=== PATIENT | female | born 1960 | race Two or more races ===

== ENCOUNTER 2020-08-17 17:22 | Outpatient (REF) | payer OTHER, SELFPAY | END 2020-08-17 17:23 | disposition home or self-care (01) | LOC: HO.LAB 17:22 | PROVIDERS: Visit Provider Internal Medicine | DX: Z20.822 Contact with and (suspected) exposure to COVID-19 (principal) | CPT/HCPCS: 36415; C9803; U0003; U0005 ==

== ENCOUNTER 2020-08-24 15:24 | Outpatient (REF) | payer OTHER, SELFPAY | END 2020-08-24 15:25 | disposition home or self-care (01) | LOC: HO.LAB 15:24 | PROVIDERS: Visit Provider Internal Medicine | DX: Z20.822 Contact with and (suspected) exposure to COVID-19 (principal) | CPT/HCPCS: 36415; C9803; U0003; U0005 ==

== ENCOUNTER 2021-07-19 07:59 | Emergency (ER) | payer OTHER, SELFPAY ==
[2021-07-19 08:42] VITALS: BP 122/72; PULSE 74; RESP 18; TEMP 36.7; O2SAT 99; BMI 32.8
--- NOTE | 2021-07-19 09:07 | ED.URI ---
HPI - URI/Sore Throat General Chief Complaint: Upper Respiratory Symptoms Stated Complaint: headache,body aches Time Seen by Provider: 07/19/21 09:07 Source: patient Mode of arrival: ambulatory Limitations: no limitations History of Present Illness HPI Narrative: This is a 60 year old female presents to the emergency department with headache, sore throat, body aches, nasal congestion, malaise X5 days. 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 She tells me she a headache, located to the frontal aspect of the head, she describes it as a tightness, she also tells me she is having neck tightness. She tells me she is very stressed because she is living at home with her father, and she is afraid that he is going to catch COVID.She is fully vaccinated against COVID. She tells me she had COVID earlier last year and it felt similar. Denies CP, SOB. MD elicited complaint: sore throat, nasal congestion and other (Bodyaches, Headache ) Onset (ago): day(s) (5) Consistency: constant Severity: moderate Able to tolerate fluids by mouth: Yes Exacerbating factors: nothing Relieving factors: nothing Context: sick contacts Related Data Allergies Allergy/AdvReac Type Severity Reaction Status Date / Time No Known Allergies Allergy Verified 07/19/21 08:41 [No Known Allergies*] Review of Systems Review of Systems: Constitutional : No Fever, No Chills, positive fatigue, positive Malaise ENT/Mouth : positive sore throat, No runny nose Eyes: No Discharge Cardiovascular : No Chest Pain, No SOB Respiratory : No Cough, No Sputum Gastrointestinal : No Nausea, No Vomiting, No Diarrhea Genitourinary : No Dysuria, No Urinary Frequency Musculoskeletal : positive Myalgia Skin : No rash Neuro : positive Headache Yes all other systems are reviewed and are negative [facility] Past Medical History Attestation statement: The following information was validated with the patient. Source: old records reviewed and nursing notes reviewed Social History Social History Advance Directives: No Physical Exam Vital Signs: Vital Signs: Last Vital Signs Temp 98.1 F 07/19/21 08:42 Pulse 74 07/19/21 08:42 Resp 18 07/19/21 08:42 BP 122/72 07/19/21 08:42 Pulse Ox 99 07/19/21 08:42 BMI result Body Mass Index 32.8 VSS Appearance: Alert.? Oriented X3.? No acute distress.? Head: Normocephalic, atraumatic, no step-offs or deformities Eyes: Pupils equal, round and reactive to light.? ENT: Pharynx normal.? Neck: Normal inspection.? Neck supple.? CVS: Normal heart rate and rhythm.? Pulses normal.? Respiratory: No respiratory distress.? Breath sounds normal.? Abdomen: Soft and nontender.? Skin: Skin warm and dry.? Normal skin color.? Normal skin turgor.? Extremities: No lower extremity edema.? No calf ttp. 5/5 strength to bilateral upper and lower extremities Neuro: Oriented X 3.? No motor deficit.? No sensory deficit. Course Reevaluation(s) Reevaluation #1: Rapid COVID negative. Patient's history and physical examination consistent with COVID-19, I have advised her to retest in 2-4 days. Have also advised her to quarantine, and practice social distancing and good hand hygiene. I have also advised her to return to the emergency department with new or worsening symptoms, and have outlined strict return precautions on her discharge. At this time patient's vital signs are stable, she is not complaining of chest pain or shortness of breath. Unlikely ACS or PE, unlikely ICH. She was given Toradol for headache. Comfortable discharge home Time: 09:39 MDM - URI/Sore Throat MDM Narrative Medical decision making narrative: 0935 60 yo F presents with COVID like symptoms X5 days. Works as a [employer] has had multiple covid + patients this past week. Her headache feels like her typical headache, she describes as tightness and squeezing to the front of her head, and she also describes tightness her neck. She reports being under lot of stress. Physical examination benign. Normal neuro exam, normal [id number], [id number], normal tandem gait. Likely an upper respiratory viral infection. Or COVID-19. Unlikely ICH, posterior stroke. Plan at this time is to obtain a COVID test Medical Records Attestation: I reviewed the patient's medical records. Lab Data Attestation: I reviewed the patient's lab results. Labs: Lab Results 07/19/21 Range/Units 08:49 COVID-19 (TYLOR) Negative (Negative) COVID-19 Clin Com See Note Critical Care Time Critical Care Time Critical Care Time: No Discharge Plan Discharge Clinical Impression: Upper respiratory infection Patient Disposition: Home, Self-Care Instructions: Upper Respiratory Infection (ED) Additional Instructions: Take your medications as prescribed. Today tested negative for COVID-19 however, advised you to retest in 2-4 days due to your close contact with COVID positive patients, and your history and physical examination. Please isolate for a few days until you retest. Wear a mask, practice social distancing and practice good hand hygiene. Follow-up with your primary care provider this week. Return to the emergency department with new or worsening symptoms. Such as chest pain, shortness of breath, fevers, chills, nausea, vomiting, headache, dizziness, vision changes, weakness. In case of emergency call 911 Referrals: Physician,Kevin J [Primary Care Provider] - 2 days Stand Alone Forms: Work/School Release
[2021-07-19 09:17] LABS: COVID-19 Test Negative (Negative); IDNOW Serial# 08D9AD1C
== END 2021-07-19 10:33 | disposition home or self-care (01) ==
PROVIDERS: Emergency Provider Emergency Medicine
DX: J06.9 Acute upper respiratory infection, unspecified (principal); Z20.822 Contact with and (suspected) exposure to COVID-19; R51.9 Headache, unspecified
CPT/HCPCS: 87635; 96372; 99282; 99284

== ENCOUNTER → 2021-10-21 14:06 | Outpatient (BNVA) | payer OTHER, SELFPAY | PROVIDERS: Visit Provider Nurse Practitioner Family | DX: M53.3 Sacrococcygeal disorders, not elsewhere classified (principal); M62.838 Other muscle spasm | CPT/HCPCS: 99202 ==

== ENCOUNTER 2022-08-01 08:53 | Emergency (ER) | payer OTHER, SELFPAY ==
--- NOTE | ~2022-08-01 | CT_ITS ---
EXAMINATION: CT ABDOMEN AND PELVIS WITHOUT CONTRAST CLINICAL INFORMATION: Left flank/abdominal pain, microscopic hematuria. COMPARISON: CT abdomen/pelvis 12/04/2016. TECHNIQUE: Multidetector volumetric imaging was performed from the superior aspect of the liver through the pubic symphysis. Sagittal and coronal reformatted images were obtained on the technologist's workstation. This CT examination was performed using dose optimization techniques as appropriate, variously including the following: *Automated exposure control *Adjustment of mA and/or kV according to patient size (this includes techniques or standardized protocols for targeted exams where dose is matched to indication/reason for exam; i.e. extremities or head) *Use of iterative reconstruction technique DLP: 643 mGy-cm FINDINGS: LUNG BASES: No focal consolidation or pleural effusion. Partially imaged coronary artery calcifications. LIVER, GALLBLADDER, AND BILIARY TREE: The noncontrast liver is normal in size, shape and attenuation with no discrete focal liver lesion. Cholecystectomy. No biliary ductal dilatation. PANCREAS: Limited noncontrast examination, unremarkable. SPLEEN: Limited noncontrast examination, unremarkable. ADRENAL GLANDS: No adrenal mass/nodule. KIDNEYS AND URETERS: There is a 5 mm stone in the left ureterovesical junction leading to moderate left-sided hydroureteronephrosis. There is an additional punctate calculus in the lateral surface of the mid left kidney (5:54) and in the upper pole of the left kidney (6:43). No right-sided nephrolithiasis. BLADDER: Partially underdistended limiting its assessment. No significant perivesical fat stranding. No radiopaque intraluminal calculi. GASTROINTESTINAL TRACT: Postoperative changes in the stomach reflecting a gastric sleeve procedure. There is nonspecific distention of the distal stomach. The small bowel is nondilated. Prior appendectomy. Colonic diverticulosis. No pericolonic inflammatory changes. No evidence of bowel obstruction. ABDOMINAL WALL: No significant hernia is appreciated. LYMPH NODES: Multiple enlarged mesenteric nodules, possibly lymphadenopathy, for instance a 1.3 x 2.1 cm lower mesenteric nodule on image 60, series 3. VASCULAR: Limited noncontrast examination. Normal diameter of the abdominal aorta. Scattered atherosclerotic disease. PELVIC VISCERA: No pelvic mass. OSSEOUS STRUCTURES: No acute or aggressive appearing osseous abnormalities. Degenerative changes of the spine. CT/CT abdomen pelvis wo IV con IMPRESSION: 1. There is a 5 mm stone in the left ureterovesical junction leading to moderate left-sided hydroureteronephrosis. 2. Additional punctate left-sided renal calculi. 3. Multiple enlarged mesenteric nodules, possibly lymphadenopathy, new compared to 2017. Uncertain etiology, recommend a short-term follow-up to reassess. 4. Nonspecific distention of the distal stomach in the setting of a gastric sleeve procedure. Correlate clinically for symptoms of gastric outlet obstruction or gastroparesis. 5. Colonic diverticulosis but no evidence of acute diverticulitis.
[2022-08-01 09:39] VITALS: BP 130/87; PULSE 74; RESP 16; TEMP 36.2; O2SAT 98; BMI 33.8
[2022-08-01 10:06] LABS: MANUAL DIFF FLAG NO
[2022-08-01 10:07] LABS: Basophils Percent Auto 0.6 % (0-2); Eosinophils Absolute Auto 0.1 X10*3/uL (0.0-0.4); Eosinophils Percent Auto 0.9 % (0-4); Hematocrit 38.7 % (37.0-47.0); Hemoglobin 13.3 g/dl (12.0-16.0); Imm Gran Abs Auto 0.02 X10*3/uL (0.00-0.03); Imm Gran Pct Auto 0.4 % (0.0-0.4); Lymphocytes Absolute Auto 1.1 X10*3/uL (1.2-4.9); Lymphocytes Percent Auto 19.7 % (20-40); Mean Corpuscular HGB Conc 34.4 g/dl (31.0-35.0); Mean Corpuscular Hemoglobin 29.1 pg (27.0-33.0); Mean Corpuscular Volume 84.7 fL (80.0-98.0); Mean Platelet Volume 8.8 fL (9.4-12.3); Monocytes Absolute Auto 0.2 X10*3/uL (0.1-1.2); Monocytes Percent Auto 4.4 % (2-11); Platelet Count 257 X10*3/uL (160-400); Red Blood Count 4.57 X10*6/uL (4.20-5.50); Red Cell Distribution Width 12.3 % (11.0-16.0); White Blood Count 5.4 X10*3/uL (4.8-10.8)
[2022-08-01 10:08] LABS: Appearance Urine Clear; Color Urine Yellow; Glucose Urine UA Negative (Negative); Leukocyte Esterase Urine Negative (Negative); Nitrite Urine Negative (Negative); PH 5.5 (5.0-9.0); UMIC TRIGGER UACC YES; Urine Blood Large (3+) (Negative); Urine Ketones Negative (Negative); Urine Protein Negative (Neg-Trace)
[2022-08-01 10:25] LABS: Bacteria Urine None Seen (None Seen); Hyaline Casts Urine 0-2 /LPF (0-2); RBC Urine >20 /HPF (0-2); Squamous Epithelial Cell Urine 0-2 /HPF (0-2); WBC Urine 0-5 /HPF (0-5)
[2022-08-01 10:27] LABS: COVID-19 Test Negative (Negative); IDNOW Serial# 9DB6401D; IDNOW Serial# BCCEAD1C; Influenza A Negative (Negative); Influenza B2 Negative (Negative)
[2022-08-01 10:30] LABS: Anion Gap 10 (12-20); Blood Urea Nitrogen 6 mg/dL (9-16); Carbon Dioxide 31 mmol/L (22-29); Chloride 107 mmol/L (96-108); Creatinine Clr Calc Pharmacy 82.6; Estimated Glomerular Filt Rate > 60; Glucose Random 111 mg/dL (60-115); Potassium 4.4 mmol/L (3.3-5.1); Sodium 144 mmol/L (135-145)
[2022-08-01 16:11] VITALS: BP 149/78; PULSE 71; RESP 16; TEMP 37.4; O2SAT 95
--- NOTE | 2022-08-01 16:30 | ED_ITS ---
HPI - Female Genitourinary General Chief complaint: Urogenital-Female Stated complaint: L back pain rad to front Time Seen by Provider: 08/01/22 16:14 Source: patient Mode of arrival: ambulatory Limitations: no limitations History of Present Illness HPI Narrative: Patient a 61 male presents to the emergency department evaluation of left flank/abdominal pain with associated nausea vomiting and fever. She states that she awoke at 02:00 this morning with sudden onset of left flank pain radiating into the left lower abdomen. Pain has been constant with varying intensity. At times it appears worse with position change/movement. Reports T-max 103 degrees today for which she took ibuprofen and fever improved. States she has vomited 5 times today, large volume of white/clear emesis. Although she does state it is not abnormal for her to have vomiting since her gastric surgery. Denies chest pain, shortness of breath, right-sided abdominal pain, dysuria, urinary frequency/urgency/hesitancy, hematuria, retention, diarrhea, constipation, bloody or dark stools, mucousy stools. Denies any history of similar pain to this in the past. When asked, she states that she is currently prescribed hydrochlorothiazide because I do not urinary Iliana? but denies any history of heart failure, or hypertension. Related Data Home Medications Medication Instructions Recorded Confirmed cholecalciferol (vitamin D3) 25 25 mcg PO DAILY 10/21/21 10/21/21 mcg (1,000 unit) tablet ferrous sulfate 325 mg (65 mg 325 mg PO DAILY 10/21/21 10/21/21 iron) tablet fluticasone propionate 50 2 spray intranasal DAILY 10/21/21 10/21/21 mcg/actuation nasal spray,suspension hydrochlorothiazide 25 mg tablet 25 mg PO DAILY 10/21/21 10/21/21 multivitamin (One Daily 1 tab PO DAILY 10/21/21 10/21/21 Multivitamin tablet) omeprazole 20 mg capsule,delayed 20 mg PO DAILY 10/21/21 10/21/21 release vitamin [id number] B1 1,000 1 ml IM . monthly 10/21/21 10/21/21 mcg-100 mg/mL injection solution Previous Rx's Medication Instructions Recorded naproxen 500 mg tablet 500 mg PO BID PRN pain #14 tabs 08/01/22 ondansetron 4 mg disintegrating 4 mg PO Q8H PRN nausea and 08/01/22 tablet vomiting #10 tabs tamsulosin 0.4 mg capsule 0.4 mg PO BEDTIME #10 caps 08/01/22 Allergies Allergy/AdvReac Type Severity Reaction Status Date / Time No Known Allergies Allergy Verified 10/21/21 14:17 [No Known Allergies*] Review of Systems Review of Systems: Constitutional : No Weight loss, positive Fever, No Chills ENT/Mouth :? No sore throat, No Rhinorrhea Eyes: No Swelling, No Redness Cardiovascular : No Chest Pain, No SOB, No Edema Respiratory : No Cough, No Sputum, No Wheezing Gastrointestinal : Positive Nausea, Positive Vomiting, no Diarrhea, positive abd ominal pain, No Hematochezia, No Melena Genitourinary : No Dysuria, No Urinary Frequency, No Hematuria, No Urgency? Musculoskeletal : No joint pain, No Myalgias, No Joint Swelling Skin : No Skin Lesions, No rash Neuro : No Weakness, No Numbness, No Dizziness, No Headache Psych : No Anxiety/Panic, No Depression Heme/Lymph: No Bruising, No Lymphadenopathy Endocrine : No Polyuria, No Polydipsia Yes all other systems are reviewed and are negative [facility] Past Medical History Attestation statement: The following information was validated with the patient. Source: old records reviewed Medical History Anemia Hypertension Surgical History H/O gastric sleeve History of appendectomy History of cholecystectomy History of hernia surgery Social History Social History Alcohol intake: never Smoked in Last 30 Days: No Use of substances other than those prescribed or required for medical reasons: No Advance Directives: No Advance Directives Information Provided: Yes Physical Exam Vital Signs: Vital Signs: Last Vital Signs Temp 98.4 F 08/01/22 20:02 Pulse 61 08/01/22 20:02 Resp 18 08/01/22 20:02 BP 135/70 08/01/22 20:02 Pulse Ox 97 08/01/22 20:02 O2 Del Method 08/01/22 20:02 BMI result Body Mass Index 33.8 Appearance: Alert.?Oriented to person, place and time. No acute distress.?Normal affect. Eyes: Pupils equal, round and reactive to light.? ENT: Pharynx normal.?? Neck: Normal inspection.? Neck supple.?? CVS: Heart sounds normal. Normal heart rate and rhythm.? Pulses normal.?? Respiratory: No respiratory distress.? Lung sounds clear to auscultation bilaterally?? Abdomen: Soft with left lower quadrant tenderness upon palpation. Left CVA tenderness.. Normoactive bowel sounds. Skin: Skin warm and dry.? Normal skin color.? Extremities: No lower extremity edema.? Neuro: Moves all extremities spontaneously. Sensation intact bilaterally. No focal neuro deficits. Ambulates with normal steady gait. Course Reevaluation(s) Reevaluation #1: CBC reveals no evidence of leukocytosis, no anemia CMP is overall unremarkable, lipase within normal limits. Urinalysis with microscopic hematuria, no evidence of urinary tract infection. COVID-19 and influenza testing are negative. CT of the abdomen and pelvis reveals a 5 mm stone at the left UVJ resulting in moderate hydronephrosis, and a additional punctate left-sided calculi. Discussed these findings with patient, provided with new prescription for naproxen, ondansetron, and tamsulosin, advised outpatient follow-up with the Urology, provided contact information. On CT there was incidental notation of enlarged mesenteric nodules, possibly lymphadenopathy which is new when compared to study in 2017. Reviewed these findings with patient. Advised outpatient follow-up with her primary care provider/bariatric specialist for further follow-up and evaluation. We discussed worrisome signs and symptoms that would warrant re-evaluation in the emergency department. All questions were answered. Patient feels comfortable with discharge home at this time. She is tolerating oral intake. Time: 20:24 Medications Administered Discontinued Medications Generic Name Dose Route Start Last Admin Trade Name Freq PRN Reason Stop Dose Admin Sodium Chloride 1,000 mls @ 999 mls/hr 08/01/22 17:15 08/01/22 18:21 Ns IV 08/01/22 18:15 999 mls/hr .Q1H1M KELVIN Administration Ketorolac Tromethamine 30 mg 08/01/22 17:07 08/01/22 18:24 Ketorolac Tromethamine 30 Mg/Ml Vial IVPUSH 08/01/22 17:08 30 mg ONCE ONE Administration Ondansetron HCl 4 mg 08/01/22 17:07 08/01/22 18:24 Ondansetron Hcl 4 Mg/2 Ml Vial IVPUSH 08/01/22 17:08 4 mg ONCE ONE Administration Medical Decision Making Medical Decision Making [facility] Narrative: Patient is a 61-year-old female with past medical history of anemia, hypertension, cholecystectomy, appendectomy, gastric sleeve who presents emergency department for evaluation of left flank/lower abdominal pain and associated nausea/vomiting and fever. At the time of examination she appears uncomfortable. Having difficulty sitting still while stretcher. Examination most significant for left lower quadrant abdominal/left CVA tenderness upon palpation. Currently she is afebrile without tachypnea, tachycardia, or hypoxia. She is in no apparent respiratory distress. Will obtain CBC to eval uate for leukocytosis/ anemia, CMP and lipase to evaluate for abnormal electrolytes /abnormal renal function/ abnormal hepatic/biliary function, CT of the abdomen and pelvis to evaluate for hydronephrosis, nephrolithiasis, obstructive urinary calculi, pyelonephritis at this time have lower suspicion for diverticulitis, colitis, bowel obstruction. Will obtain Urinalysis. Patient to receive 1 L normal saline IV, ondansetron IV for nausea, ketorolac IV for pain. Disposition pending results. Differential Diagnosis Differential Diagnoses: The differential diagnosis associated with the presentation includes (As noted above) Lab Data [facility] Lab Attestation statement: I reviewed the patient's lab results. 08/01/22 09:59 08/01/22 09:59 Labs: Lab Results 08/01/22 08/01/22 08/01/22 Range/Units 09:59 09:59 09:59 WBC (4.8-10.8) X10*3/uL RBC (4.20-5.50) X10*6/uL Hgb (12.0-16.0) g/dl Hct (37.0-47.0) % MCV (80.0-98.0) fL MCH (27.0-33.0) pg MCHC (31.0-35.0) g/dl RDW (11.0-16.0) % Plt Count (160-400) X10*3/uL MPV (9.4-12.3) fL Immature Gran % (Auto) (0.0-0.4) % Neut % (Auto) (45-73) % Lymph % (Auto) (20-40) % [place] % (Auto) (2-11) % Eos % (Auto) (0-4) % Baso % (Auto) (0-2) % Lymph # (Auto) (1.2-4.9) X10*3/uL [place] # (Auto) (0.1-1.2) X10*3/uL Eos # (Auto) (0.0-0.4) X10*3/uL Baso # (Auto) (0.0-0.2) X10*3/uL Abs Immat Gran (auto) (0.00-0.03) X10*3/uL Absolute Neuts (auto) (2.0-8.3) x10*3/uL Absolute Nucleated RBC (0.0-0.012) X10*3/uL Nucleated RBC % (auto) (0.0-0.2) /100WBC Sodium 144 (135-145) mmol/L Potassium 4.4 (3.3-5.1) mmol/L Chloride 107 (96-108) mmol/L Carbon Dioxide 31 H (22-29) mmol/L Anion Gap 10 L (12-20) BUN 6 L (9-16) mg/dL Creatinine 0.69 (0.5-1.4) mg/dL Estim Creat Clear Calc 82.6 Estimated GFR > 60 Random Glucose 111 (60-115) mg/dL Calcium 9.0 (8.4-10.2) mg/dL Total Bilirubin 0.6 (0.0-1.0) mg/dL Direct Bilirubin 0.2 (0.0-0.5) mg/dL AST 29 (5-31) U/L ALT 25 (0-31) U/L Alkaline Phosphatase 64 (39-117) U/L Total Protein 6.4 L (6.5-8.0) g/dL Albumin 3.9 (3.5-5.0) g/dL Lipase 20 (8-78) U/L Urine Color Urine Appearance Urine pH (5.0-9.0) Ur Specific [place] (1.005-1.025) Urine Protein (Neg-Trace) mg/dL Urine Glucose (UA) (Negative) mg/dL Urine Ketones (Negative) mg/dL Urine Blood (Negative) Urine Nitrite (Negative) Ur Leukocyte Esterase (Negative) Urine RBC (0-2) /HPF Urine WBC (0-5) /HPF Ur Squamous Epith Cells (0-2) /HPF Urine Bacteria (None Seen) Hyaline Casts (0-2) /LPF COVID-19 ([facility]) Negative (Negative) COVID-19 Clin Com See Note Influenza Type A (PIPER) Negative (Negative) Influenza Type B (PIPER) Negative (Negative) Influenza A & B Note See Note 08/01/22 08/01/22 Range/Units 09:59 09:59 WBC 5.4 (4.8-10.8) X10*3/uL RBC 4.57 (4.20-5.50) X10*6/uL Hgb 13.3 (12.0-16.0) g/dl Hct 38.7 (37.0-47.0) % MCV 84.7 (80.0-98.0) fL MCH 29.1 (27.0-33.0) pg MCHC 34.4 (31.0-35.0) g/dl RDW 12.3 (11.0-16.0) % Plt Count 257 (160-400) X10*3/uL MPV 8.8 L (9.4-12.3) fL Immature Gran % (Auto) 0.4 (0.0-0.4) % Neut % (Auto) 74.0 H (45-73) % Lymph % (Auto) 19.7 L (20-40) % [place] % (Auto) 4.4 (2-11) % Eos % (Auto) 0.9 (0-4) % Baso % (Auto) 0.6 (0-2) % Lymph # (Auto) 1.1 L (1.2-4.9) X10*3/uL [place] # (Auto) 0.2 (0.1-1.2) X10*3/uL Eos # (Auto) 0.1 (0.0-0.4) X10*3/uL Baso # (Auto) 0.0 (0.0-0.2) X10*3/uL Abs Immat Gran (auto) 0.02 (0.00-0.03) X10*3/uL Absolute Neuts (auto) 4.0 (2.0-8.3) x10*3/uL Absolute Nucleated RBC 0.000 (0.0-0.012) X10*3/uL Nucleated RBC % (auto) 0.0 (0.0-0.2) /100WBC Sodium (135-145) mmol/L Potassium (3.3-5.1) mmol/L Chloride (96-108) mmol/L Carbon Dioxide (22-29) mmol/L Anion Gap (12-20) BUN (9-16) mg/dL Creatinine (0.5-1.4) mg/dL Estim Creat Clear Calc Estimated GFR Random Glucose (60-115) mg/dL Calcium (8.4-10.2) mg/dL Total Bilirubin (0.0-1.0) mg/dL Direct Bilirubin (0.0-0.5) mg/dL AST (5-31) U/L ALT (0-31) U/L Alkaline Phosphatase (39-117) U/L Total Protein (6.5-8.0) g/dL Albumin (3.5-5.0) g/dL Lipase (8-78) U/L Urine Color Yellow Urine Appearance Clear Urine pH 5.5 (5.0-9.0) Ur Specific [place] 1.010 (1.005-1.025) Urine Protein Negative (Neg-Trace) mg/dL Urine Glucose (UA) Negative (Negative) mg/dL Urine Ketones Negative (Negative) mg/dL Urine Blood Large (3+) H (Negative) Urine Nitrite Negative (Negative) Ur Leukocyte Esterase Negative (Negative) Urine RBC >20 H (0-2) /HPF Urine WBC 0-5 (0-5) /HPF Ur Squamous Epith Cells 0-2 (0-2) /HPF Urine Bacteria None Seen (None Seen) Hyaline Casts 0-2 (0-2) /LPF COVID-19 ([facility]LOR) (Negative) COVID-19 Clin Com Influenza Type A (PIPER) (Negative) Influenza Type B (PIPER) (Negative) Influenza A & B Note Radiology Impression Discussion of test interpretation with radiology: I have reviewed the radiologist's reading. Radiologist Impression: CT/CT abdomen pelvis wo IV con IMPRESSION: 1.? There is a 5 mm stone in the left ureterovesical junction leading to moderate left-sided hydroureteronephrosis. 2.? Additional punctate left-sided renal calculi. 3.? Multiple enlarged mesenteric nodules, possibly lymphadenopathy, new compared to 2017. Uncertain etiology, recommend a short-term follow-up to reassess. 4.? Nonspecific distention of the distal stomach in the setting of a gastric sleeve procedure. Correlate clinically for symptoms of gastric outlet obstruction or gastroparesis. 5.? Colonic diverticulosis but no evidence of acute diverticulitis. Prescription Management I considered prescription management with: Pain Medication Discharge Plan Discharge Clinical Impression: Hydronephrosis concurrent with and due to calculi of kidney and ureter, Mesenteric lymphadenopathy Patient Disposition: Home, Self-Care Instructions: Lymphadenopathy (ED), Ureteral Stones (ED) Additional Instructions: The CT scan reveals evidence of a kidney stone on your left side, it is at the area where your ureter (the small tube from your kidney that leads to your blad carrie), meets with your bladder, meaning this is very close to being fully past. You have been given a prescription for anti-inflammatory, in addition to tamsulosin to take to assist with passing the stone. In addition you have been given a medication to help with nausea/vomiting. You have been provided contact information for the urologist associated with this hospital, please contact their office tomorrow to arrange for a follow-up visit. You may return back to the emergency department with any new or worsening symptoms or concerns. As we discussed, the CT scan of your abdomen also incidentally revealed enlarged lymph nodes within your abdomen, this is very nonspecific, and may be in rela tion to viral infections, but would not be caused by your kidney stones. For this you should contact your primary care provider, to arrange for a follow-up visit and further evaluation as needed. Prescriptions: New tamsulosin 0.4 mg capsule 0.4 mg PO BEDTIME Qty: 10 0RF naproxen 500 mg tablet 500 mg PO BID PRN (Reason: pain) Qty: 14 0RF ondansetron 4 mg tablet,disintegrating 4 mg PO Q8H PRN (Reason: nausea and vomiting) Qty: 10 0RF No Action cholecalciferol (vitamin D3) 25 mcg (1,000 unit) tablet 25 mcg PO DAILY omeprazole 20 mg capsule,delayed release(DR/EC) 20 mg PO DAILY hydrochlorothiazide 25 mg tablet 25 mg PO DAILY multivitamin [One Daily Multivitamin] Tablet 1 tab PO DAILY ferrous sulfate 325 mg (65 mg iron) tablet 325 mg PO DAILY vitamin [id number] B1 1,000-100 mg/mL solution 1 ml IM . monthly fluticasone propionate 50 mcg/actuation spray,suspension 2 spray intranasal DAILY Referrals: Greg Pacheco MD [Physician] - Juancarlos Means III, MD [Primary Care Provider] - Interventions: ED Discharge Assessment Last Done: 08/01/22 20:59 Discharge Date/Time: 08/01/22 20:59
--- OUTSIDE RECORDS SUMMARY | 2022-08-01 16:40 | XMS_ITS | Continuity of Care Document ---
:1960 Author Organization [facility] Address [address] [place] [id number]- Care Team Providers Name Role Phone Not on Staff, PCP Primary Care Physician Unavailable Encounter [facility] Date(s): 01/11/21 - 01/11/[address] [id number] Discharge Disposition: A-D/C Home Attending Physician: Dorothy Trinidad MD Admitting Physician: Dorothy Trinidad MD Referring Physician: Dorothy Trinidad MD
--- OUTSIDE RECORDS SUMMARY | 2022-08-01 16:40 | XMS_ITS | Continuity of Care Document ---
:1960 Author Organization [facility] Address [address] [place] [id number]- Care Team Providers Name Role Phone Not on Staff, PCP Primary Care Physician Unavailable Encounter [facility] Date(s): 02/22/21 - 03/24/21 [facility] [address] [place] [id number]-
[2022-08-01 17:56] LABS: Alanine Aminotransferase 25 U/L (0-31); Albumin Level 3.9 g/dL (3.5-5.0); Alkaline Phosphatase 64 U/L (39-117); Aspartate Amino Transferase 29 U/L (5-31); Bilirubin Direct 0.2 mg/dL (0.0-0.5); Bilirubin Total 0.6 mg/dL (0.0-1.0); Lipase 20 U/L (8-78); Total Protein 6.4 g/dL (6.5-8.0)
[2022-08-01] MEDS: 0.9 % Sodium Chloride 1,000 ML 999 ML IV (18:21)
[2022-08-01] MEDS: Ketorolac Tromethamine 30 MG/ML VIAL IVPUSH (18:24)
[2022-08-01] MEDS: ondansetron HCL 4 MG/2 ML VIAL IVPUSH (18:24)
--- NOTE | 2022-08-01 19:00 | PC.NURSE ---
Addendum entered by Nuha Armstrong RN 08/01/22 20:04: pt is alert and oriented resting in bed no signs of acute distress notice breathing equally unlabored denies any pain at this moment Original Note: report received from WADE Paz
[2022-08-01 20:02] VITALS: BP 135/70; PULSE 61; RESP 18; TEMP 36.9; O2SAT 97
== END 2022-08-01 20:59 | disposition home or self-care (01) ==
PROVIDERS: Nurse Practitioner Family; Emergency Provider Emergency Medicine Emergency Medical Services; PCP Internal Medicine
DX: N20.0 Calculus of kidney (principal); R59.1 Generalized enlarged lymph nodes; M54.50 Low back pain, unspecified; Z20.828 Contact with and (suspected) exposure to other viral communicable diseases; Z20.822 Contact with and (suspected) exposure to COVID-19; Z98.84 Bariatric surgery status; Z79.899 Other long term (current) drug therapy
CPT/HCPCS: 36415; 74176; 80048; 80076; 81001; 83690; 85025; 87502; 87635; 96374; 96375; 99284; J1885; J2405

== ENCOUNTER 2022-08-24 22:00 | Emergency (ER) | payer OTHER, SELFPAY ==
--- NOTE | ~2022-08-24 | XR_ITS ---
EXAMINATION: XR hand wrist RT CLINICAL INFORMATION: Pain COMPARISON: None. TECHNIQUE: PA, oblique and lateral views XR/XR hand wrist RT FINDINGS/IMPRESSION: * Acute comminuted fractures of the fifth metacarpal neck with mild palmar radial angulation. No intra-articular extension. No additional fractures. * No dislocation. * Soft tissue swelling dorsal to the fifth metacarpal
--- NOTE | ~2022-08-24 | XR_ITS ---
EXAMINATION: XR KNEE, RIGHT CLINICAL INFORMATION: Fall. Pain. COMPARISON: None TECHNIQUE: Four views of the right knee. FINDINGS: No acute fracture or dislocation. Tricompartmental marginal osteophytes. Moderate medial tibiofemoral compartment joint space narrowing. No erosive changes. No joint effusion. Soft tissues unremarkable. XR/XR knee RT 4V IMPRESSION: * No acute fracture or dislocation. * Degenerative changes as described.
[2022-08-24 22:44] VITALS: BP 153/73; PULSE 74; RESP 18; TEMP 36.3; O2SAT 98; BMI 33.4
--- NOTE | 2022-08-25 01:30 | ED.FALL ---
HPI - Fall General Chief Complaint: Fall Stated Complaint: fell down stairs 2/8 ,right wrist inj Time Seen by Provider: 08/25/22 01:28 Source: patient Mode of arrival: ambulatory Limitations: no limitations and language barrier History of Present Illness HPI Narrative: Patient is 62 years so female apparently fell down while coming down the stairs holding stuffs in her hand landed on her right side hitting right wrist to the railings comes in with swelling of the right hand also complaining of pain in the right knee but able to ambulate no head injury or any other injury Related Data Home Medications Medication Instructions Recorded Confirmed cholecalciferol (vitamin D3) 25 25 mcg PO DAILY 10/21/21 10/21/21 mcg (1,000 unit) tablet ferrous sulfate 325 mg (65 mg 325 mg PO DAILY 10/21/21 10/21/21 iron) tablet fluticasone propionate 50 2 spray intranasal DAILY 10/21/21 10/21/21 mcg/actuation nasal spray,suspension hydrochlorothiazide 25 mg tablet 25 mg PO DAILY 10/21/21 10/21/21 multivitamin (One Daily 1 tab PO DAILY 10/21/21 10/21/21 Multivitamin tablet) omeprazole 20 mg capsule,delayed 20 mg PO DAILY 10/21/21 10/21/21 release vitamin B12-anbjpyg B1 1,000 1 ml IM . monthly 10/21/21 10/21/21 mcg-100 mg/mL injection solution Previous Rx's Medication Instructions Recorded naproxen 500 mg tablet 500 mg PO BID PRN pain #14 tabs 08/01/22 ondansetron 4 mg disintegrating 4 mg PO Q8H PRN nausea and 08/01/22 tablet vomiting #10 tabs tamsulosin 0.4 mg capsule 0.4 mg PO BEDTIME #10 caps 08/01/22 oxycodone-acetaminophen 5 mg-325 1 tab PO Q6H PRN pain #20 tabs 08/25/22 mg tablet (Percocet) Allergies Allergy/AdvReac Type Severity Reaction Status Date / Time No Known Allergies Allergy Verified 08/24/22 22:48 [No Known Allergies*] Review of Systems Review of Systems: Yes all other systems are reviewed and are negative PMFSH Past Medical History Medical History Anemia Hypertension Surgical History H/O gastric sleeve History of appendectomy History of cholecystectomy History of hernia surgery Social History Social History Alcohol intake: never Advance Directives: No Advance Directives Information Provided: No Physical Exam Vital Signs: Vital Signs: Last Vital Signs Temp 97.4 F 08/25/22 02:00 Pulse 81 08/25/22 02:00 Resp 16 08/25/22 02:00 BP 130/79 08/25/22 02:00 Pulse Ox 94 08/25/22 02:00 O2 Del Method 08/25/22 02:00 BMI result Body Mass Index 33.4 Const: General: cooperative, healthy appearing and comfortable Nutritional Appearance: average body habitus Orientation/consciousness: patient oriented x3 HEENT: Head: Yes normal to inspection, Yes No palpable skull fracture present, Yes normocephalic and Yes atraumatic Face and sinus: Yes normal facial exam Neck: Neck: Yes full ROM, Yes trachea midline and No tender Chest: Chest palpation & inspection: normal inspection of the chest and normal palpation of entire chest wall Resp: Effort & Inspection: normal respiratory effort Auscultation: clear to auscultation bilaterally Cardio: Palpation: normal PMI Rate: regular rate Rhythm: regular rhythm Heart sounds: S1 normal heart sound present and S2 normal heart sound present GI: Inspection: Yes normal to inspection Palpation (GI): Soft to palpation and nontender : General: Yes no CVA tenderness Back/Spine/Pelvis: Back: no CVA tenderness Cervical Spine: normal cervical lordosis, cervical ROM normal and No step off deformity Thoracic/Lumbar Spine: thoracic and lumbar spine normal to inspection Neuro: General: patient oriented x3 Extrem: Hand/finger images: 1. Swelling with obvious deformity of right 5th metacarpal neurovascular intact Upper/lower leg/hip images: 1. Mild diffuse tenderness of the right knee no effusion good range of movement patient able to stand and walk without any discomfort Procedures Orthopedic Splinting/Casting Injury #1: Side: right Upper Extremity Injury Location: hand Upper Extremity Immobilizer: ulnar gutter Medical Decision Making Medical Decision Making MDM Narrative: Patient status post fall with acute comminuted fracture of 5th metacarpal neck with mild prominent radial angulation ulnar gutter splint was applied patient advised to follow with orthopedics Radiology Impression Discussion of test interpretation with radiology: I have reviewed the radiologist's reading. Radiologist Impression: ? Acute comminuted fractures of the fifth metacarpal neck with mild palmar radial angulation. No intra-articular extension. No additional fractures. *? No dislocation. *? Soft tissue swelling dorsal to the fifth metacarpal Discharge Plan Discharge Clinical Impression: Boxer's metacarpal fracture, neck, closed Patient Disposition: Home, Self-Care Instructions: Boxer Fracture (ED) Additional Instructions: Wear the splint for support Pain medication as prescribed Follow with Orthopedics Prescriptions: New oxycodone-acetaminophen [Percocet] 5-325 mg tablet 1 tab PO Q6H PRN (Reason: pain) Qty: 20 0RF Rx Instructions: Partial Fill upon patient request. No Action tamsulosin 0.4 mg capsule 0.4 mg PO BEDTIME Qty: 10 0RF naproxen 500 mg tablet 500 mg PO BID PRN (Reason: pain) Qty: 14 0RF ondansetron 4 mg tablet,disintegrating 4 mg PO Q8H PRN (Reason: nausea and vomiting) Qty: 10 0RF cholecalciferol (vitamin D3) 25 mcg (1,000 unit) tablet 25 mcg PO DAILY omeprazole 20 mg capsule,delayed release(DR/EC) 20 mg PO DAILY hydrochlorothiazide 25 mg tablet 25 mg PO DAILY multivitamin [One Daily Multivitamin] Tablet 1 tab PO DAILY ferrous sulfate 325 mg (65 mg iron) tablet 325 mg PO DAILY vitamin A28-ixecxbe B1 1,000-100 mg/mL solution 1 ml IM . monthly fluticasone propionate 50 mcg/actuation spray,suspension 2 spray intranasal DAILY Referrals: Telly Arellano MD [Physician] - 5 days Interventions: ED Discharge Assessment Last Done: 08/25/22 02:31 Discharge Date/Time: 08/25/22 02:41
[2022-08-25 02:00] VITALS: BP 130/79; PULSE 81; RESP 16; TEMP 36.3; O2SAT 94
== END 2022-08-25 02:41 | disposition home or self-care (01) ==
PROVIDERS: Emergency Provider Internal Medicine; PCP Internal Medicine
DX: S12.9XXA Fracture of neck, unspecified, initial encounter (principal); S63.501A Unspecified sprain of right wrist, initial encounter; M25.561 Pain in right knee; W10.9XXA Fall (on) (from) unspecified stairs and steps, initial encounter; Y93.9 Activity, unspecified; Y92.9 Unspecified place or not applicable; Y99.9 Unspecified external cause status; Z79.899 Other long term (current) drug therapy
CPT/HCPCS: 73110; 73130; 73564; 99283; 99284

== ENCOUNTER 2022-08-29 08:01 | Outpatient (REF) | payer OTHER, SELFPAY ==
--- NOTE | ~2022-08-29 | XR_ITS ---
EXAMINATION: XR HAND, RIGHT CLINICAL INFORMATION: Hand pain COMPARISON: 08/24/2022 TECHNIQUE: Three views of the right hand. FINDINGS: No significant change in the appearance of the angulated fracture of the distal 5th metacarpal. No new abnormality. XR/XR hand RT min 3V IMPRESSION: Unchanged angulated fracture of the distal 5th metacarpal.
== END 2022-08-29 08:02 | disposition home or self-care (01) ==
LOC: HO.HOSX 08:01
PROVIDERS: Visit Provider Physician Assistant
DX: S62.330A Displaced fracture of neck of second metacarpal bone, right hand, initial encounter for closed fracture (principal)
CPT/HCPCS: 73130; 99202

== ENCOUNTER 2022-08-31 07:57 | Day surgery (SDC) | payer OTHER, SELFPAY ==
--- NOTE | ~2022-08-31 | FL_ITS ---
EXAMINATION: XR FLUOROSCOPY WITH IMAGES CLINICAL INFORMATION: Fracture COMPARISON: Previous right hand and wrist x-rays from earlier this month TECHNIQUE: Fluoroscopy Supervised By: Dr. Carmen Albarran. Fluoroscopy Time: 12.3 seconds. Cumulative Dose: 0.3 mGy. DAP: 0.02 Gycm2. Images: 3. FINDINGS: Images demonstrate a new pin or K wire transfixing the right fifth metacarpal fracture with improved alignment. FL/FL guidance in OR IMPRESSION: Fluoroscopy guidance for ORIF of right fifth metacarpal fracture.
[2022-08-31 08:26] VITALS: BMI 33.4
[2022-08-31 08:44] VITALS: BP 135/72; PULSE 66; RESP 16; TEMP 36.8; O2SAT 97
--- NOTE | 2022-08-31 09:19 | MHC.SHP ---
Pre-Procedural Eval Section A Date of Service: 08/31/22 The patient is an INPATIENT: No Changes since office visit: No Cold of Flu in the past 2 weeks, No New Medical Problems, No Changes in Medication and No Patient answered all questions The History & Physical has been completed within 30 days and I have reviewed it.: Yes Section B Chief Complaint: Unspecified fracture of fifth metacarpal bone, rig Allergies: Allergies Allergy/AdvReac Type Severity Reaction Status Date / Time No Known Allergies Allergy Verified 08/29/22 10:30 [No Known Allergies*] Plan I have reviewed the history and physical and performed a pertinent physical examination on my patient. No changes have occurred unless specified. Time Spent With Patient Time: Total time managing care of this patient today ____ minutes.
--- NOTE | 2022-08-31 09:21 | P.OP_ITS ---
Operative Note Operative Note Date of Service: 08/31/22 Narrative: Operative Note Narrative: Preop diagnosis: 1. right 5th Metacarpal shaft fracture Postop diagnosis: Same Procedure: 1. right 5th Metacarpal fracture closed reduction percutaneous pinning 2. Ulnar nerve block Surgeon: Carmen Albarran MD Anesthesia: General Anesthesia Findings: Metacarpal fracture Implants: 0.062 K-wires times 1 Tourniquet time: None EBL: Minimal Specimen: None Drains: None Complications: None Disposition: Brought to the recovery room in stable condition Plan: Follow-up in 10-14 days for a wound check, postop radiographs and for placement in a short-arm cast or splint Anticipate K-wire removal in 4 weeks based on interval bony healing Educate the patient that full fracture healing anticipated in approximately 8-12 weeks. Indications: The patient is 62 years old with right 5th metacarpal shaft fracture . The risks and benefits of operative treatment, including but not limited to risk of damage to blood vessels, nerves, tendons, infection, r ecurrence, delayed or nonunion of fracture, persistent pain or numbness, incomplete resolution of preoperative symptoms, or need for further surgery were discussed with the patient and they wished to proceed with surgery. Procedure: Once consent was obtained patient was brought back to the operating suite and placed in the operating table in a supine position. . Perioperative antibiotics and general anesthesia was administered by the anesthesia team. A tourniquet was applied to the proximal aspect of the right upper extremity and the limb was prepped and draped in a standard surgical fashion. Tourniquet was not inflated during the case. The FluoroScan was used during the case to assist with our fracture reduction and placement of all implants. A closed reduction was performed on the patient's right if metacarpal shaft fracture. I placed a single 0.062 K-wire retrograde through the head of the right 5th metacarpal extending proximally across the fracture site to the base of the metacarpal. Fracture alignment was assessed for both angular and rotational malalignment. Once satisfied with our fracture reduction and implant placement, the K-wires were bent and cut roya rt and pin caps applied. Final fluoroscopic images were then obtained. The wounds were copiously irrigated with normal saline. An ulnar nerve block was then performed by infiltrating about the ulnar nerve at the wrist with some 0.5% plain ropivacaine for postop pain control. A Sterile dressing and short volar splint was applied. The patient appears to have tolerated the procedure well and with no complications. All digits were well vascularized at the conclusion of the case.
--- NOTE | 2022-08-31 09:50 | P.CONAN_ITS ---
HPI - Anesthesia Eval Consult details Narrative: 62 F for right 5th Metacarpal percutaneous pinning PMFSH Active Problems Active Problems: All Active Problems (Updated 08/29/22 @ 11:23 by Susi Reddy) Sacroiliac joint pain (Acute) Muscle spasm (Acute) Boxer's metacarpal fracture, neck, closed (Acute) Past Medical History Medical History Anemia Hypertension Functional capacity: independent ambulation Family History Family history of problems with anesthesia: No Surgical History Surgical History H/O gastric sleeve History of appendectomy History of cholecystectomy History of hernia surgery History of Problems with Anesthesia: Yes (PONV ) Social History Social History (Updated 08/29/22 @ 10:31 by Berta Ritchie) Alcohol intake: never Patient Tobacco Use Status: Never used Tobacco Use of substances other than those prescribed or required for medical reasons: No Are you DNR?: No Advance Directives: No Advance Directives Information Provided: Yes Current occupational status: employed 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 Meds Allergies Allergy/AdvReac Type Severity Reaction Status Date / Time No Known Allergies Allergy Verified 08/29/22 10:30 [No Known Allergies*] Home Medications Medication Instructions Recorded Confirmed Last Taken Type cholecalciferol (vitamin D3) 25 25 mcg PO DAILY 10/21/21 10/21/21 Unknown History mcg (1,000 unit) tablet ferrous sulfate 325 mg (65 mg 325 mg PO DAILY 10/21/21 10/21/21 Unknown History iron) tablet fluticasone propionate 50 2 spray intranasal DAILY 10/21/21 10/21/21 Unknown History mcg/actuation nasal spray,suspension hydrochlorothiazide 25 mg tablet 25 mg PO DAILY 10/21/21 10/21/21 Unknown History multivitamin (One Daily 1 tab PO DAILY 10/21/21 10/21/21 Unknown History Multivitamin tablet) omeprazole 20 mg capsule,delayed 20 mg PO DAILY 10/21/21 10/21/21 Unknown History release vitamin O19-midqijl B1 1,000 1 ml IM . monthly 10/21/21 10/21/21 Unknown History mcg-100 mg/mL injection solution Exam Exam Date and Time: August 31, 2022 0950 Height,Weight and Vital Signs: Height 5 ft 1 in Weight 80.286 kg Last Vital Signs Temp 98.2 F 08/31/22 08:44 Pulse 66 08/31/22 08:44 Resp 16 08/31/22 08:44 BP 135/72 08/31/22 08:44 Pulse Ox 97 08/31/22 08:44 O2 Del Method 08/31/22 08:44 Airway Mallampati Class: III TM Dist: >3cm Neck ROM: Full Loose/Missing/Broken Teeth: Yes Heart: S1,S2 Lungs: b/l breath sounds Assessment and Plan Assessment Anesthesia Assessment: Anesthesia Plan Discussed and Chart Reviewed Final Anesthetic Review Family History of Problems with Anesthesia: No History of Problems with Anesthesia: Yes (PONV ) NPO: Yes ASA Class: III Final Preanesthetic Review: Meds/Allgs Chart Reviewed, Consent Obtained/Reviewed and Anes Risks/Benef Reviewed Patient Risk: Intermediate Procedure Risk: Intermediate Anesthetic Plan Anesthetic Plan: GA Disposition: Standard PACU
[2022-08-31] MEDS: Lactated Ringers 1,000 ML 50 ML IVCONT (10:18)
[2022-08-31] MEDS: Scopolamine 1.5 MG PATCH.TD.3 EAR-BEHIND (10:19)
[2022-08-31 12:05] VITALS: BP 126/68; PULSE 77; RESP 15; TEMP 36.9; O2SAT 99
[2022-08-31 12:10] VITALS: BP 123/74; PULSE 91; RESP 16; O2SAT 99
[2022-08-31 12:15] VITALS: BP 128/70; PULSE 86; RESP 16; O2SAT 97
[2022-08-31 12:20] VITALS: BP 132/80; PULSE 87; RESP 16; O2SAT 99
[2022-08-31 12:35] VITALS: BP 138/68; PULSE 68; RESP 18; O2SAT 100
== END 2022-08-31 13:44 | disposition home or self-care (01) ==
PROVIDERS: PCP Internal Medicine; Visit Provider Orthopaedic Surgery
PROC: (CPT 26615; principal; 2022-08-31 09:50)
DX: S62.326A Displaced fracture of shaft of fifth metacarpal bone, right hand, initial encounter for closed fracture (principal); W10.8XXA Fall (on) (from) other stairs and steps, initial encounter; Y93.89 Activity, other specified; Y92.008 Other place in unspecified non-institutional (private) residence as the place of occurrence of the external cause; Y99.8 Other external cause status; D64.9 Anemia, unspecified; I10 Essential (primary) hypertension; Z98.84 Bariatric surgery status; Z90.49 Acquired absence of other specified parts of digestive tract; Z79.1 Long term (current) use of non-steroidal anti-inflammatories (NSAID); Z79.899 Other long term (current) drug therapy
CPT/HCPCS: 26608; J0690; J2250; J2405; J2795; J3010

== ENCOUNTER 2022-09-12 16:32 | Outpatient (REF) | payer OTHER, SELFPAY ==
--- NOTE | ~2022-09-12 | XR_ITS ---
EXAMINATION: XR HAND, RIGHT CLINICAL INFORMATION: Pain in right hand COMPARISON: Right hand 08/31/2022 TECHNIQUE: PA, lateral, and oblique views of the right hand. FINDINGS: There is a solitary pin traversing through the distal fifth metacarpal stabilization present the fracture.. No additional fracture seen. There is mild osteopenia. The soft tissues are normal. XR/XR hand RT min 3V IMPRESSION: Solitary pin traversing the distal fifth metacarpal fracture. There is mild osteopenia. No additional fracture seen.
== END 2022-09-12 16:33 | disposition home or self-care (01) ==
LOC: HO.HOSX 16:32
PROVIDERS: Visit Provider Physician Assistant
DX: S62.316D Displaced fracture of base of fifth metacarpal bone, right hand, subsequent encounter for fracture with routine healing (principal)
CPT/HCPCS: 29085; 73130

== ENCOUNTER 2022-09-26 09:16 | Outpatient (REF) | payer OTHER, SELFPAY ==
--- NOTE | ~2022-09-26 | XR_ITS ---
EXAMINATION: XR HAND, RIGHT CLINICAL INFORMATION: Pain right hand. COMPARISON: Right hand 09/12/2022. TECHNIQUE: PA, lateral, and oblique views of the right hand. FINDINGS: There is a solitary pin stabilizing distal 5th metatarsal fracture in alignment. Mild callus formation seen at the fracture site. Mild loss of PIP and DIP joint spaces are seen. The MCP joint spaces are normal. No additional fracture seen. The soft tissues are normal. XR/XR hand RT min 3V IMPRESSION: Solitary pin stabilizing distal fifth metatarsal fracture in alignment. There is mild callus formation seen at the fracture site. Suspect mild degenerative changes PIP and DIP joints.
== END 2022-09-26 09:17 | disposition home or self-care (01) ==
LOC: HO.HOSX 09:16
PROVIDERS: Visit Provider Orthopaedic Surgery
DX: S62.332D Displaced fracture of neck of third metacarpal bone, right hand, subsequent encounter for fracture with routine healing (principal); M25.641 Stiffness of right hand, not elsewhere classified; R20.0 Anesthesia of skin; R20.2 Paresthesia of skin; X58.XXXD Exposure to other specified factors, subsequent encounter
CPT/HCPCS: 73130; 99212

== ENCOUNTER 2022-10-10 13:19 | Outpatient (REF) | payer OTHER, SELFPAY ==
--- NOTE | ~2022-10-10 | XR_ITS ---
EXAMINATION: XR HAND, RIGHT CLINICAL INFORMATION: Fracture COMPARISON: Previous x-ray 09/26/2022 TECHNIQUE: PA, lateral, and oblique views of the right hand. FINDINGS: The wire or pin in the fifth finger across the MCP joint has been removed. There is a healing fracture of the neck of the fifth metacarpal bone. Fracture line is still seen. There is increasing bony callus formation. No other fracture. Mild degenerative changes at the IP joints and first MCP and FPC joint. Increasing osteopenia. Normal soft tissues. XR/XR hand RT min 3V IMPRESSION: Healing fracture of the neck of the fifth metacarpal bone.
== END 2022-10-10 13:20 | disposition home or self-care (01) ==
LOC: HO.HOSX 13:19
PROVIDERS: PCP Internal Medicine; Visit Provider Orthopaedic Surgery
DX: S62.306D Unspecified fracture of fifth metacarpal bone, right hand, subsequent encounter for fracture with routine healing (principal)
CPT/HCPCS: 73130; 99212

== ENCOUNTER 2022-11-02 10:23 | Outpatient (RCR) | payer OTHER, SELFPAY ==
--- NOTE | 2022-11-02 16:26 | MHC.OT.EP ---
[address] [phone] Occupational Therapy Plan of Care Patient Name: Leilani Delgado Date of Evaluation: 11/02/22 Diagnosis: s/p right small finger CRPP stiffness of right hand Pain Location: Pain in 4th and 5th MCP Current: 8/10 Best: 6/10 Pain Score: 8 Pain Scale Used: Numeric (0 - 10) Aggravating Factors: Any functional use Alleviating Factors: Tylenol, Motrin Assessment: Pt is a 62 y/o female, right hand dominant, s/p MCP fracture of right small finger w/ CRPP by Dr. Albarran on 08/21/22. K-wire was removed on 09/26/22. Pt reports pain primarily in right 4th and 5th digits and ulnar aspect of hand. She experiences 'shooting' pain with occasional numbness. At follow up visit, pt. was put on light duty with a 2# lifting restriction. 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 Pt presents with stiffness in all digits with difficulty making a fist. With practice and encouragement, she was able to make a loose fist with fingertips approx 1cm away from palm. Gross grasp is 10# compared to 55# on the left. A 79.5% limitation is reported per the Quick DASH assessment. Pt. would benefit from skilled OT services to address noted barriers and assist in return to PLOF. Frequency and Duration: The patient will be seen 2x/wk for 6 weeks Short Term Goals: Decrease hand pain to <4/10 Improve 4th and 5th digit MP flexion to 80 degrees IND with HEP Improved FM skills as evidenced by >5 sec improvement on FDT [employer] Goals: Pain free with BADL's/IADL's Improve digit AROM to be able to make full composite fist Improve gross grasp >35# IND with progression of HEP Quick DASH <25% Treatment Plan: Therapeutic Exercise Home Exercise Program Patient Education Edema Control Ultrasound Paraffin Fluidotherapy MHP Joint Mobilization Soft Tissue Mobilization Kinesiotaping Electronically Signed By: Ana Mascorro MS OTR/L Please Sign and return to therapist. Thank you once again for your referral.
== END 2023-02-15 15:21 | disposition home or self-care (01) ==
LOC: HO.OT 10:23
PROVIDERS: PCP Internal Medicine; Visit Provider Orthopaedic Surgery
DX: S62.339A Displaced fracture of neck of unspecified metacarpal bone, initial encounter for closed fracture (principal); M25.641 Stiffness of right hand, not elsewhere classified
CPT/HCPCS: 97110; 97165

== ENCOUNTER 2022-11-06 13:39 | Outpatient (REF) | payer OTHER, SELFPAY | END 2022-11-06 13:40 | disposition home or self-care (01) | LOC: HO.HOSX 13:39 | PROVIDERS: Visit Provider Orthopaedic Surgery | DX: Z13.89 Encounter for screening for other disorder (principal) ==

== ENCOUNTER 2022-11-08 09:09 | Outpatient (REF) | payer OTHER, SELFPAY | END 2022-11-08 09:10 | disposition home or self-care (01) | LOC: HO.HOSX 09:09 | PROVIDERS: Visit Provider Orthopaedic Surgery | DX: Z13.89 Encounter for screening for other disorder (principal) ==

== ENCOUNTER 2023-12-18 15:01 | Emergency (ER) | payer OTHER, SELFPAY ==
[2023-12-18] VITALS (9 sets, daily range): BP systolic 84–130; BP diastolic 49–84; PULSE 50–67; RESP 12–20; TEMP 36.4–36.5; O2SAT 95–99; BMI 34.4
--- NOTE | ~2023-12-18 | XR_ITS ---
EXAMINATION: XR CHEST CLINICAL INFORMATION: Shortness of breath. COMPARISON: Chest x-ray dated 06/30/2017. TECHNIQUE: 2 views of the chest were obtained. FINDINGS: The cardiomediastinal silhouette is within normal limits in size. Lungs bilaterally are symmetrically expanded. There is slight thickening of the central small airways, suggesting reactive airways disease or bronchitis. No focal consolidation, effusion or pneumothorax is seen. Low cervical spine fusion hardware is in place. Bony structures are otherwise unremarkable. Cherie are noted in the right upper quadrant from prior cholecystectomy. XR/XR chest 2V IMPRESSION: Findings are suggestive of reactive airways disease or bronchitis. No focal pneumonia.
--- NOTE | ~2023-12-18 | CT_ITS ---
EXAMINATION: CT ABDOMEN AND PELVIS WITH CONTRAST CLINICAL INFORMATION: Upper abdominal pain and vomiting and hypotension. History of gastric sleeve. COMPARISON: Previous CT of the abdomen and pelvis from 2022 TECHNIQUE: Multidetector volumetric images were obtained from the superior aspect of the liver through the pubic symphysis following administration 85 mL of Omnipaque 350 intravenous contrast. Sagittal and coronal reformatted images were obtained on the technologist's workstation. Oral contrast: Yes This CT examination was performed using dose optimization techniques as appropriate, variously including the following: *Automated exposure control *Adjustment of mA and/or kV according to patient size (this includes techniques or standardized protocols for targeted exams where dose is matched to indication/reason for exam; i.e. extremities or head) *Use of iterative reconstruction technique DLP: 680 mGy-cm FINDINGS: LUNG BASES: The visualized lung bases are unremarkable. LIVER, GALLBLADDER, AND BILIARY TREE: The liver is normal in size, shape, and attenuation. No focal hepatic lesion or biliary ductal dilatation is present. The gallbladder has been removed. PANCREAS: Unremarkable. SPLEEN: Unremarkable. ADRENAL GLANDS: Unremarkable. KIDNEYS AND URETERS: The kidneys are normal in size, shape, and attenuation. Small nonobstructing stone in the upper pole of the left kidney measuring 1 to 2 mm. No hydronephrosis. No ureteral stone. BLADDER: Unremarkable. GASTROINTESTINAL TRACT: Postsurgical changes following gastric sleeve. Mild diverticulosis of the colon. Post appendectomy. Prominent small bowel mesentery lymph nodes as described below. There is also increased haziness or small bowel mesentery or edema and question of mild wall thickening of the proximal small bowel in the left midabdomen for example axial image 43. ABDOMINAL WALL: No significant hernia is appreciated. LYMPH NODES: Prominent small bowel mesentery lymph nodes similar to prior exam. Largest lymph node may be cystic or necrotic and measures 1.5 cm. This is similar to previous exam. No other adenopathy. No ascites. VASCULAR: Unremarkable. The SMA and SMV are patent. PELVIC VISCERA: Unremarkable. OSSEOUS STRUCTURES: Unremarkable. Degenerative changes of the spine. CT/CT abdomen pelvis w IV con IMPRESSION: Question mild wall thickening of proximal small bowel and small bowel mesentery edema. Findings are questionable for enteritis. There are prominent small bowel mesentery lymph nodes similar to 2022 exam, largest low-attenuation or cystic measuring 1.5 cm. Postsurgical changes from gastric sleeve, cholecystectomy and appendectomy. Mild diverticulosis of the colon. Small nonobstructing left renal stone. Fleischner guidelines were followed.
--- NOTE | 2023-12-18 15:22 | ECG_ITS ---
Test Reason : DIZZINESS Blood Pressure : / mmHG Vent. Rate : 056 BPM Atrial Rate : 056 BPM P-R Int : 166 ms QRS Dur : 090 ms QT Int : 458 ms P-R-T Axes : 015 -05 032 degrees QTc Int : 441 ms Sinus bradycardia Cannot rule out Anterior infarct (cited on or before 18-DEC-2023) Abnormal ECG When compared with ECG of 17-NOV-2017 14:03, Vent. rate has decreased BY 29 BPM Referred By: Generic ED Physician Electronically Signed By:BRIAN AWAD MD
--- NOTE | 2023-12-18 15:36 | ED.GENADULT ---
HPI - General Adult General Chief complaint: Nausea/Vomiting/Diarrhea Stated complaint: DIZZY,NAUSEA,VOMITING PER EMS Time Seen by Provider: 12/18/23 15:36 History of Present Illness HPI narrative: The patient is a 63-year-old female with generally in reasonably good health. She has a history of gastric sleeve surgery at [facility] by Dr. Garrett. She says that she takes hydrochlorothiazide for fluid retention but denies significant other medical problems. 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 She says that she went to work today but only worked a couple of hours because 1 of her jobs was canceled. She then went home and did some housework. While doing some house work she started to feel unwell. She felt nauseated. She then started to have vomiting and diarrhea. She believes that she vomited at least 6 times and had loose stools at least 3 times. She felt profoundly weak and dizzy and also somewhat short of breath. None of her family members were able to drive her to the hospital so she called an ambulance. She still feels weak and nauseated. No significant abdominal pain. No other pains. Related Data Home Medications ?Medication ?Instructions ?Recorded ?Confirmed cholecalciferol (vitamin D3) 25 25 mcg PO DAILY 10/21/21 10/21/21 mcg (1,000 unit) tablet ferrous sulfate 325 mg (65 mg 325 mg PO DAILY 10/21/21 10/21/21 iron) tablet fluticasone propionate 50 2 spray intranasal DAILY 10/21/21 10/21/21 mcg/actuation nasal spray,suspension hydrochlorothiazide 25 mg tablet 25 mg PO DAILY 10/21/21 10/21/21 multivitamin (One Daily 1 tab PO DAILY 10/21/21 10/21/21 Multivitamin tablet) omeprazole 20 mg capsule,delayed 20 mg PO DAILY 10/21/21 10/21/21 release vitamin Z67-cstyiaj B1 1,000 1 ml IM . monthly 10/21/21 10/21/21 mcg-100 mg/mL injection solution Previous Rx's ?Medication ?Instructions ?Recorded naproxen 500 mg tablet 500 mg PO BID PRN pain #14 tabs 08/01/22 ondansetron 4 mg disintegrating 4 mg PO Q8H PRN nausea and 08/01/22 tablet vomiting #10 tabs tamsulosin 0.4 mg capsule 0.4 mg PO BEDTIME #10 caps 08/01/22 Allergies Allergy/AdvReac Type Severity Reaction Status Date / Time No Known Allergies Allergy Verified 12/18/23 15:20 [No Known Allergies*] Review of Systems Review of Systems: Yes all other systems are reviewed and are negative [facility] Past Medical History Medical History Anemia Hypertension Surgical History H/O gastric sleeve History of appendectomy History of cholecystectomy History of hernia surgery Social History Social History Alcohol intake: never Patient Tobacco Use Status: Never used Tobacco Smoked in Last 30 Days: No Use of substances other than those prescribed or required for medical reasons: No Advance Directives: No Advance Directives Information Provided: Yes Do you have a plan to hurt others: No Plan Patient : No Current occupational status: employed 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 Physical Exam ED Vital Signs: Vital Signs - 24 hr 12/18/23 15:18 12/18/23 16:00 12/18/23 17:58 Temperature 97.7 F 97.6 F Pulse Rate 55 67 Respiratory Rate 14 14 14 Blood Pressure 108/54 L 107/52 L Pulse Oximetry 95 99 98 Oxygen Delivery Method Room Air Room Air Room Air 12/18/23 19:17 12/18/23 19:19 12/18/23 19:20 Temperature Pulse Rate 61 61 61 Respiratory Rate Blood Pressure 89/49 L 102/58 L 113/66 Pulse Oximetry Oxygen Delivery Method 12/18/23 20:38 12/18/23 21:13 Temperature Pulse Rate 59 66 Respiratory Rate 12 20 Blood Pressure 84/49 L 91/53 L Pulse Oximetry 95 95 Oxygen Delivery Method Room Air BMI result Body Mass Index 34.4 Const Other: The patient is awake and alert. She looks worn out. HENMT Other: Mucous membranes look slightly dry. Face is symmetrical. Eyes Other: Round equal, conjunctivae are clear Neck Other: No JVD Resp Effort & Inspection: normal respiratory effort Auscultation: clear to auscultation bilaterally Cardio Rate: regular rate Rhythm: regular rhythm Heart sounds: S1 normal heart sound present and S2 normal heart sound present GI Other: Abdomen seems soft. There is some mild epigastric tenderness. No rebound or guarding. Skin Other: Skin is pale and dry Neuro Other: The patient is awake and alert, oriented and appropriate. She seems fatigued and worn out. Cranial nerves are grossly intact. She moves her extremities symmetrically. No obvious focal neurological deficit. Extrem Other: No calf swelling or tenderness Medications Administered Discontinued Medications Generic Name Dose Route Start Last Admin Trade Name Syedq PRN Reason Stop Dose Admin Diphenhydramine HCl 25 mg 12/18/23 19:52 12/18/23 20:38 Diphenhydramine Hcl 50 Mg/Ml Vial IVPUSH 12/18/23 19:53 25 mg ONCE ONE Administration Sodium Chloride 1,000 mls @ 999 mls/hr 12/18/23 16:00 12/18/23 17:41 Ns IV 12/18/23 17:00 Infused .Q1H1M KELVIN Infusion Sodium Chloride 1,000 mls @ 999 mls/hr 12/18/23 18:30 12/18/23 20:38 Ns IV 12/18/23 19:30 999 mls/hr .Q1H1M KELVIN Administration Iohexol 85 ml 12/18/23 21:47 12/18/23 21:48 Iohexol 350 Mg/Ml 100 Ml Infus..Btl IV 12/18/23 21:48 85 ml ONCE ONE Administration Ketorolac Tromethamine 10 mg 12/18/23 19:52 12/18/23 20:37 Ketorolac Tromethamine 15 Mg/Ml Vial IVPUSH 12/18/23 19:53 10 mg ONCE ONE Administration Metoclopramide HCl 10 mg 12/18/23 19:52 12/18/23 20:37 Metoclopramide Hcl 10 Mg/2 Ml Vial IVPUSH 12/18/23 19:53 10 mg ONCE ONE Administration Ondansetron HCl 4 mg 12/18/23 15:52 12/18/23 16:45 Ondansetron Hcl 4 Mg/2 Ml Vial IVPUSH 12/18/23 15:53 4 mg ONCE ONE Administration Medical Decision Making Medical Decision Making MDM Narrative: The patient is a 63-year-old female who describes herself as generally being good health. She says that she takes a lot of vitamins because of her history of gastric sleeve surgery 4 years ago at [facility]. The patient became acutely ill today at home with vomiting and diarrhea and a sense of intense weakness. There was no fever. She was afebrile here. She does not have an elevated white count or left shift. My initial impression was that the patient probably had some kind of an acute viral illness causing vomiting diarrhea and a general sense of feeling unwell. She did not seem to have intense abdominal pain or significant findings on her abdominal exam. The patient's workup seemed reassuring with a normal white count of 5000 and no left shift and a normal CRP. She was treated symptomatically with ondansetron and IV fluids. There was a delay in the result of her viral swab (which was ultimately negative). After her negative viral swab I re-examined her. She was complaining of a headache at that point and so, metoclopramide, and diphenhydramine. The patient seemed to become more hypotensive (although she remained relatively bradycardic). I was puzzled by the drop in blood pressure. I therefore sent a repeat troponin which is negative. Also a repeat BMP which was unremarkable. On my re-examination she seemed to possibly have more epigastric tenderness than I initially appreciated. Given her history of gastric sleeve surgery I felt evaluation of the abdomen by CT would be appropriate and I have ordered the CT. The patient will be signed out to my colleague at change of shift pending the results of the CT of the abdomen and pelvis and re-evaluation of her blood pressure. Lab Data 12/18/23 16:06 12/18/23 21:13 Labs: Lab Results 12/18/23 12/18/23 12/18/23 Range/Units 15:39 16:06 21:13 WBC 5.4 (4.8-10.8) X10*3/uL RBC 4.48 (4.20-5.50) X10*6/uL Hgb 13.2 (12.0-16.0) g/dl Hct 37.9 (37.0-47.0) % MCV 84.6 (80.0-98.0) fL MCH 29.5 (27.0-33.0) pg MCHC 34.8 (31.0-35.0) g/dl RDW 12.5 (11.0-16.0) % Plt Count 213 (160-400) X10*3/uL MPV 9.1 L (9.4-12.3) fL Immature Gran % (Auto) 0.4 (0.0-0.4) % Neut % (Auto) 70.7 (45-73) % Lymph % (Auto) 18.3 L (20-40) % Wetzel % (Auto) 7.0 (2-11) % Eos % (Auto) 3.0 (0-4) % Baso % (Auto) 0.6 (0-2) % Lymph # (Auto) 1.0 L (1.2-4.9) X10*3/uL Wetzel # (Auto) 0.4 (0.1-1.2) X10*3/uL Eos # (Auto) 0.2 (0.0-0.4) X10*3/uL Baso # (Auto) 0.0 (0.0-0.2) X10*3/uL Abs Immat Gran (auto) 0.02 (0.00-0.03) X10*3/uL Absolute Neuts (auto) 3.8 (2.0-8.3) x10*3/uL Absolute Nucleated RBC 0.000 (0.0-0.012) X10*3/uL Nucleated RBC % (auto) 0.0 (0.0-0.2) /100WBC Sodium 141 143 (135-145) mmol/L Potassium 3.0 L 3.4 (3.3-5.1) mmol/L Chloride 108 112 H (96-108) mmol/L Carbon Dioxide 23 24 (22-29) mmol/L Anion Gap 13 10 L (12-20) BUN 15 14 (9-16) mg/dL Creatinine 0.79 0.67 (0.5-1.4) mg/dL Estim Creat Clear Calc 71.0 83.7 Estimated GFR > 60 > 60 Random Glucose 161 H 122 H (60-115) mg/dL Calcium 9.0 8.3 L D (8.4-10.2) mg/dL Magnesium 1.8 (1.6-2.6) mg/dL Total Bilirubin 0.4 (0.0-1.0) mg/dL Direct Bilirubin 0.1 (0.0-0.5) mg/dL AST 32 H (5-31) U/L ALT 25 (0-31) U/L Alkaline Phosphatase 60 (39-117) U/L Troponin I High Sens < 2.7 < 2.7 (<3.5-17.0) ng/L C-Reactive Protein 0.27 (< or = 0.50) mg/dL Total Protein 6.4 L (6.5-8.0) g/dL Albumin 3.7 (3.5-5.0) g/dL Lipase 27 (8-78) U/L Urine Color Dark Yellow Urine Appearance Cloudy Urine pH 5.0 (5.0-9.0) Ur Specific Casa >= 1.030 H (1.005-1.025) Urine Protein Trace (Neg-Trace) mg/dL Urine Glucose (UA) Negative (Negative) mg/dL Urine Ketones Negative (Negative) mg/dL Urine Blood Negative (Negative) Urine Nitrite Negative (Negative) Ur Leukocyte Esterase Negative (Negative) Influenza Type A (PCR) NEGATIVE (Negative) Influenza Type B (PCR) NEGATIVE (Negative) RSV RNA Qual (PCR) NEGATIVE (Negative) SARS-CoV-2 RNA (RT-PCR) NEGATIVE (Negative) Independent Interpretation I performed an independent interpretation of an: EKG Interpretation: EKG at 15:36 shows sinus bradycardia at 56 beats per minute, no definite acute changes Discharge Plan Discharge Clinical Impression: Vomiting and diarrhea, Headache, Epigastric pain Patient Disposition: Still a Patient Additional Instructions: Please rest and take it easy. Drink lot of fluids. Continue your usual regimen. Please plan on following up soon with your regular doctor. Prescriptions: No Action tamsulosin 0.4 mg capsule 0.4 mg PO BEDTIME Qty: 10 0RF naproxen 500 mg tablet 500 mg PO BID PRN (Reason: pain) Qty: 14 0RF ondansetron 4 mg tablet,disintegrating 4 mg PO Q8H PRN (Reason: nausea and vomiting) Qty: 10 0RF cholecalciferol (vitamin D3) 25 mcg (1,000 unit) tablet 25 mcg PO DAILY omeprazole 20 mg capsule,delayed release(DR/EC) 20 mg PO DAILY hydrochlorothiazide 25 mg tablet 25 mg PO DAILY multivitamin [One Daily Multivitamin] Tablet 1 tab PO DAILY ferrous sulfate 325 mg (65 mg iron) tablet 325 mg PO DAILY vitamin T31-tiydpfb B1 1,000-100 mg/mL solution 1 ml IM . monthly fluticasone propionate 50 mcg/actuation spray,suspension 2 spray intranasal DAILY Referrals: Juancarlos Means III, MD [Physician] - (Vomiting and diarrhea) Print Language: Frisian
[2023-12-18 15:49] LABS: Appearance Urine Cloudy; Color Urine Dark Yellow; Glucose Urine UA Negative (Negative); Leukocyte Esterase Urine Negative (Negative); Nitrite Urine Negative (Negative); Specific Gravity - Urine >= 1.030 (1.005-1.025); Urine Blood Negative (Negative); Urine Ketones Negative (Negative); Urine Protein Trace mg/dL (Neg-Trace)
[2023-12-18 16:10] LABS: MANUAL DIFF FLAG NO
[2023-12-18 16:12] LABS: Basophils Percent Auto 0.6 % (0-2); Eosinophils Absolute Auto 0.2 X10*3/uL (0.0-0.4); Hematocrit 37.9 % (37.0-47.0); Hemoglobin 13.2 g/dl (12.0-16.0); Imm Gran Abs Auto 0.02 X10*3/uL (0.00-0.03); Imm Gran Pct Auto 0.4 % (0.0-0.4); Lymphocytes Percent Auto 18.3 % (20-40); Mean Corpuscular HGB Conc 34.8 g/dl (31.0-35.0); Mean Corpuscular Hemoglobin 29.5 pg (27.0-33.0); Mean Corpuscular Volume 84.6 fL (80.0-98.0); Mean Platelet Volume 9.1 fL (9.4-12.3); Monocytes Absolute Auto 0.4 X10*3/uL (0.1-1.2); Neutrophils Absolute Auto 3.8 x10*3/uL (2.0-8.3); Neutrophils Percent Auto 70.7 % (45-73); Platelet Count 213 X10*3/uL (160-400); Red Blood Count 4.48 X10*6/uL (4.20-5.50); Red Cell Distribution Width 12.5 % (11.0-16.0); White Blood Count 5.4 X10*3/uL (4.8-10.8)
[2023-12-18 16:26] LABS: Alanine Aminotransferase 25 U/L (0-31); Albumin Level 3.7 g/dL (3.5-5.0); Alkaline Phosphatase 60 U/L (39-117); Anion Gap 13 (12-20); Aspartate Amino Transferase 32 U/L (5-31); Bilirubin Direct 0.1 mg/dL (0.0-0.5); Bilirubin Total 0.4 mg/dL (0.0-1.0); Blood Urea Nitrogen 15 mg/dL (9-16); C Reactive Protein 0.27 mg/dL (< or = 0.50); Carbon Dioxide 23 mmol/L (22-29); Chloride 108 mmol/L (96-108); Estimated Glomerular Filt Rate > 60; Glucose Random 161 mg/dL (60-115); Sodium 141 mmol/L (135-145); Total Protein 6.4 g/dL (6.5-8.0)
[2023-12-18 16:34] LABS: Troponin-I High Sensitivity < 2.7 ng/L (<3.5-17.0)
[2023-12-18] MEDS: 0.9 % Sodium Chloride 1,000 ML 999 ML IV ×2 (16:41→20:38)
[2023-12-18] MEDS: ondansetron HCL 4 MG/2 ML VIAL IVPUSH (16:45)
[2023-12-18 19:46] LABS: Influenza A PCR NEGATIVE (Negative); Influenza B PCR NEGATIVE (Negative); Resp Syncy Virus RNA Qual PCR NEGATIVE (Negative); SARS COV2 PCR INHOUSE NEGATIVE (Negative)
[2023-12-18] MEDS: Metoclopramide HCl 10 MG/2 ML VIAL IVPUSH (20:37)
[2023-12-18] MEDS: Ketorolac Tromethamine 15 MG/ML VIAL 10 MG IVPUSH (20:37)
[2023-12-18] MEDS: diphenhydrAMINE HCL 50 MG/ML VIAL 25 MG IVPUSH (20:38)
[2023-12-18 21:36] LABS: Anion Gap 10 (12-20); Blood Urea Nitrogen 14 mg/dL (9-16); Calcium 8.3 mg/dL (8.4-10.2); Carbon Dioxide 24 mmol/L (22-29); Chloride 112 mmol/L (96-108); Creatinine Clr Calc Pharmacy 83.7; Estimated Glomerular Filt Rate > 60; Glucose Random 122 mg/dL (60-115); Lipase 27 U/L (8-78); Magnesium 1.8 mg/dL (1.6-2.6); Potassium 3.4 mmol/L (3.3-5.1); Sodium 143 mmol/L (135-145)
[2023-12-18] MEDS: iohexoL 350 MG/ML 100 ML INFUS..BTL 85 ML IV (21:48)
[2023-12-18 21:49] LABS: Troponin-I High Sensitivity < 2.7 ng/L (<3.5-17.0)
[2023-12-18 22:47] LABS: MANUAL DIFF FLAG NO
[2023-12-18 22:49] LABS: Basophils Percent Auto 0.4 % (0-2); Eosinophils Absolute Auto 0.1 X10*3/uL (0.0-0.4); Eosinophils Percent Auto 1.1 % (0-4); Hematocrit 32.2 % (37.0-47.0); Hemoglobin 11.3 g/dl (12.0-16.0); Imm Gran Abs Auto 0.01 X10*3/uL (0.00-0.03); Imm Gran Pct Auto 0.2 % (0.0-0.4); Lymphocytes Absolute Auto 1.1 X10*3/uL (1.2-4.9); Lymphocytes Percent Auto 19.4 % (20-40); Mean Corpuscular HGB Conc 35.1 g/dl (31.0-35.0); Mean Corpuscular Hemoglobin 29.7 pg (27.0-33.0); Mean Corpuscular Volume 84.7 fL (80.0-98.0); Mean Platelet Volume 8.5 fL (9.4-12.3); Monocytes Absolute Auto 0.3 X10*3/uL (0.1-1.2); Monocytes Percent Auto 6.1 % (2-11); Neutrophils Absolute Auto 4.1 x10*3/uL (2.0-8.3); Neutrophils Percent Auto 72.8 % (45-73); Platelet Count 201 X10*3/uL (160-400); Red Cell Distribution Width 12.7 % (11.0-16.0); White Blood Count 5.6 X10*3/uL (4.8-10.8)
== END 2023-12-18 23:10 | disposition home or self-care (01) ==
PROVIDERS: Emergency Medicine; Emergency Provider Emergency Medicine; PCP Surgery
DX: R10.13 Epigastric pain (principal); R11.10 Vomiting, unspecified; R19.7 Diarrhea, unspecified; R51.9 Headache, unspecified; I10 Essential (primary) hypertension; Z79.899 Other long term (current) drug therapy; Z98.84 Bariatric surgery status
CPT/HCPCS: 0241U; 36415; 71046; 74177; 80048; 80076; 81003; 83690; 83735; 84484; 85025; 86140; 93005; 96361; 96374; 96375; 99284; 99285; J1200; J1885; J2405; J2765; Q9967

== ENCOUNTER → 2023-12-18 15:22 | Outpatient (BNV) | payer OTHER, SELFPAY | PROVIDERS: Emergency Provider Emergency Medicine; PCP Surgery; Visit Provider Internal Medicine Cardiovascular Disease | DX: R42 Dizziness and giddiness (principal) | CPT/HCPCS: 93010 ==

== ENCOUNTER 2024-04-16 10:10 | Emergency (ER) | payer MEDICAID, SELFPAY ==
--- NOTE | ~2024-04-16 | XR_ITS ---
EXAMINATION: XR CHEST CLINICAL INFORMATION: Cough COMPARISON: 12/18/2023 TECHNIQUE: Frontal view of the chest was obtained. FINDINGS: No focal consolidation, pulmonary edema, or pleural effusion. Stable cardiomediastinal silhouette. XR/XR chest 1V IMPRESSION: No acute cardiopulmonary findings. Electronically signed by: Cesario Olivia MD 04/16/2024 11:58 AM EDT
[2024-04-16 10:12] VITALS: BP 146/84; PULSE 69; RESP 18; TEMP 36.2; O2SAT 99; BMI 35.0
[2024-04-16 11:02] LABS: Influenza A PCR NEGATIVE (Negative); Influenza B PCR NEGATIVE (Negative); Resp Syncy Virus RNA Qual PCR NEGATIVE (Negative); SARS COV2 PCR INHOUSE NEGATIVE (Negative)
[2024-04-16 11:10] LABS: IDNOW Serial# 08D9AD1C; Strep A Nucleic Acid Negative (Negative)
--- NOTE | 2024-04-16 12:50 | ED_ITS ---
HPI - General Adult General Chief complaint: Upper Respiratory Symptoms Stated complaint: [id number] Time Seen by Provider: 04/16/24 10:36 Source: patient Mode of arrival: ambulatory Limitations: no limitations History of Present Illness ED Provider: Carlos Altamirano HPI narrative: 63 yold female healthy with no pmh presents to the ED for coughing, sore throat, bodycahes, and headcahes for 3 days. Patient denies any chest pain or shortness of breath. Patient states everyone else at home is sick. Related Data Home Medications ?Medication ?Instructions ?Recorded ?Confirmed cholecalciferol (vitamin D3) 25 25 mcg PO DAILY 10/21/21 10/21/21 mcg (1,000 unit) tablet ferrous sulfate 325 mg (65 mg 325 mg PO DAILY 10/21/21 10/21/21 iron) tablet fluticasone propionate 50 2 spray intranasal DAILY 10/21/21 10/21/21 mcg/actuation nasal spray,suspension hydrochlorothiazide 25 mg tablet 25 mg PO DAILY 10/21/21 10/21/21 multivitamin (One Daily 1 tab PO DAILY 10/21/21 10/21/21 Multivitamin tablet) omeprazole 20 mg capsule,delayed 20 mg PO DAILY 10/21/21 10/21/21 release vitamin Y17-vnehbtx B1 1,000 1 ml IM . monthly 10/21/21 10/21/21 mcg-100 mg/mL injection solution Previous Rx's ?Medication ?Instructions ?Recorded naproxen 500 mg tablet 500 mg PO BID PRN pain #14 tabs 08/01/22 ondansetron 4 mg disintegrating 4 mg PO Q8H PRN nausea and 08/01/22 tablet vomiting #10 tabs tamsulosin 0.4 mg capsule 0.4 mg PO BEDTIME #10 caps 08/01/22 loperamide 2 mg capsule 2 mg PO Q4H PRN loose stool #14 12/18/23 caps ondansetron HCl 4 mg tablet 4 mg PO Q6H PRN nausea and 12/18/23 vomiting #10 tabs benzonatate 200 mg capsule 200 mg PO TID PRN cough 5 days #15 04/16/24 caps Allergies Allergy/AdvReac Type Severity Reaction Status Date / Time No Known Allergies Allergy Verified 04/16/24 10:14 [No Known Allergies*] Review of Systems Review of Systems: Cough, sore throat, body aches Yes all other systems are reviewed and are negative [facility] Past Medical History Medical History Anemia Hypertension Surgical History H/O gastric sleeve History of appendectomy History of cholecystectomy History of hernia surgery Social History Social History Alcohol intake: never Patient Tobacco Use Status: Never used Tobacco Advance Directives: No Advance Directives Information Provided: No Do you have a plan to hurt others: No Plan Current occupational status: employed 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 Physical Exam ED Vital Signs: Vital Signs - 24 hr 04/16/24 10:12 04/16/24 13:10 Temperature 97.2 F 97.2 F Pulse Rate 69 69 Respiratory Rate 18 18 Blood Pressure 146/84 H 146/84 H Pulse Oximetry 99 99 Oxygen Delivery Method Room Air Room Air BMI result Body Mass Index 35.0 Const General: cooperative, healthy appearing, comfortable, no acute distress, well developed, alert, awake and Physically active Orientation/consciousness: patient oriented x3 HENMT Head: Yes normal to inspection, Yes No palpable skull fracture present, Yes normocephalic and Yes atraumatic Ears: hearing grossly normal bilaterally, external ears normal, TM's normal bilaterally, TM normal on the right, TM normal on the left, EAC's normal, mastoids normal and no periauricular adenopathy Throat: Yes posterior oropharynx normal, Yes tonsils normal and Yes uvula midline Eyes General: appearance normal, both eyes and all related structures Neck Neck: Yes normal visual inspection, Yes full ROM, Yes no lymphadenopathy, Yes no meningeal signs, Yes trachea midline, Yes supple, No anterior neck swelling and No tender Chest Chest palpation & inspection: normal inspection of the chest and normal palpation of entire chest wall Resp Effort & Inspection: normal respiratory effort and able to speak in complete sentences Auscultation: clear to auscultation bilaterally Cardio Jugular venous distension: no JVD Heart sounds: S1 normal heart sound present and S2 normal heart sound present GI Inspection: Yes normal to inspection Palpation (GI): Soft to palpation, not firm, nontender, no guarding and not rigid General: No CVA tenderness and Yes no CVA tenderness Back/Spine/Pelvis Back: no CVA tenderness, No CVA tenderness and No back tenderness Skin General skin exam: no rashes or lesions noted, elasticity normal and turgor normal Neuro General: patient oriented x3, gait normal, tone normal, moves all extremities, Normal light touch and pain sensation, no meningeal signs, no focal motor deficits, CN's II-XI intact bilaterally and normal sensation to monofilament Extrem General: Yes normal to inspection, Yes full ROM and Yes capillary refill normal Psych Appearance: grossly normal, well kempt and not disheveled Medical Decision Making Medical Decision Making MDM Narrative: 63 yold female with boxers fracture, sacroilliac joint pain presents to ED for URI symptoms. Patient denies any chest pain or shortness of breath. Patient well-appearing. Vital signs stable. Lungs clear. Negative for swelling, pitting edema, calf pain. SARs, COVID, strep, influenza, and chest x-ray normal. Patient explained worrisome signs informed to return to the ED immediately. Not suspecting PE, myocarditis, heart failure, NE, pneumothorax, hemothorax or any other life-threatening etiology. Differential Diagnosis Differential Diagnoses: The differential diagnosis associated with the presentation includes (Pneumonia, SARS, Strep) Admission/Observation Consideration of admission/observation: Escalation of care including admission/observation considered Lab Data [facility] Lab Attestation statement: I reviewed the patient's lab results. Labs: Lab Results 04/16/24 04/16/24 Range/Units 10:20 10:58 Influenza Type A (PCR) NEGATIVE (Negative) Influenza Type B (PCR) NEGATIVE (Negative) RSV RNA Qual (PCR) NEGATIVE (Negative) SARS-CoV-2 RNA (RT-PCR) NEGATIVE (Negative) S. pyogenes GrpA PIPER Negative (Negative) Independent Interpretation I performed an independent interpretation of an: Plain X-Ray Radiology Impression Discussion of test interpretation with radiology: I have reviewed the radiologist's reading. Independent Historian Clinical information obtained from an independent historian. History obtained from or confirmed by: Other External Record Review External record reviewed: Other (prior visits) Prescription Management I considered prescription management with: Other (benzonatat) Discharge Plan Discharge Clinical Impression: URI (upper respiratory infection) Patient Disposition: Home, Self-Care Instructions: Upper Respiratory Infection (ED) Additional Instructions: Return to the ED immediately for any coughing up blood, weakness, dizziness, chest pain, shortness of breath, calf pain, inability tolerate solid food/liquid, or any other concerning symptoms. Recommend follow-up with primary care provider. Prescriptions: New benzonatate 200 mg capsule 200 mg PO TID PRN (Reason: cough) 5 Days Qty: 15 0RF No Action tamsulosin 0.4 mg capsule 0.4 mg PO BEDTIME Qty: 10 0RF naproxen 500 mg tablet 500 mg PO BID PRN (Reason: pain) Qty: 14 0RF ondansetron 4 mg tablet,disintegrating 4 mg PO Q8H PRN (Reason: nausea and vomiting) Qty: 10 0RF ondansetron HCl 4 mg tablet 4 mg PO Q6H PRN (Reason: nausea and vomiting) Qty: 10 0RF loperamide 2 mg capsule 2 mg PO Q4H PRN (Reason: loose stool) Qty: 14 0RF Rx Instructions: administer after each loose stool until symptoms controlled; do not exceed 8 mg per 24 hrs cholecalciferol (vitamin D3) 25 mcg (1,000 unit) tablet 25 mcg PO DAILY omeprazole 20 mg capsule,delayed release(DR/EC) 20 mg PO DAILY hydrochlorothiazide 25 mg tablet 25 mg PO DAILY multivitamin [One Daily Multivitamin] Tablet 1 tab PO DAILY ferrous sulfate 325 mg (65 mg iron) tablet 325 mg PO DAILY vitamin O22-wfoqobd B1 1,000-100 mg/mL solution 1 ml IM . monthly fluticasone propionate 50 mcg/actuation spray,suspension 2 spray intranasal DAILY Stand Alone Forms: Work/School Release Interventions: ED Discharge Assessment Last Done: 04/16/24 13:10 Discharge Date/Time: 04/16/24 13:11 Print Language: Frisian
[2024-04-16 13:10] VITALS: BP 146/84; PULSE 69; RESP 18; TEMP 36.2; O2SAT 99
== END 2024-04-16 13:11 | disposition home or self-care (01) ==
PROVIDERS: Physician Assistant; Emergency Provider Student in an Organized Health Care Education/Training Program
DX: J06.9 Acute upper respiratory infection, unspecified (principal); J02.9 Acute pharyngitis, unspecified; Z03.818 Encounter for observation for suspected exposure to other biological agents ruled out; R05.9 Cough, unspecified
CPT/HCPCS: 0241U; 71045; 87651; 99282; 99283

== ENCOUNTER 2025-01-20 15:44 | Emergency (ER) | payer OTHER, SELFPAY ==
--- NOTE | ~2025-01-20 | CT_ITS ---
CLINICAL HISTORY: fall CT CERVICAL SPINE WITHOUT CONTRAST Comparison: None provided Findings: Discectomy and anterior fusion at C6-7. Satisfactory vertebral body alignment. Mild degenerative changes. No acute fractures or dislocations. Please see the separate report for the CT head/brain. No cervical fluid collections or masses. No apical pneumothorax. IMPRESSION: No acute fracture in the cervical spine. This document has been electronically signed by: Candie Mayer DO on 01/20/2025 18:13:43
--- NOTE | ~2025-01-20 | CT_ITS ---
CLINICAL HISTORY: Fall on left side. pain CT ABDOMEN AND PELVIS WITHOUT CONTRAST Comparison: CT - CT ABDOMEN PELVIS W IV CON - 12/18/23 21:42 EDT Findings: Please see the separate report for the CT chest. The unenhanced solid organs are grossly intact. Small parenchymal injury can be missed on noncontrast imaging. No hydronephrosis or urolithiasis. Cholecystectomy. No AAA. No bowel obstruction, pneumoperitoneum, or pneumatosis. No hemoperitoneum. Mild fluid distention of multiple small bowel loops. Large colonic stool burden. No significant mesenteric or paracolic edema. Appendectomy changes. Prior gastric bypass. Senescent changes in the uterus. Empty urinary bladder. Sigmoid diverticulosis with no acute diverticulitis. No acute fracture or dislocation. Disc bulge suspected at L3-4 with at least moderate spinal stenosis. Disc bulge suspected at L5-S1 with no significant spinal stenosis. IMPRESSION: 1. No acute posttraumatic changes. 2. Mild small bowel ileus pattern. 3. No obstructive or acute inflammatory changes in the gastrointestinal and genitourinary tracts. This document has been electronically signed by: Candie Mayer DO on 01/20/2025 18:01:46
--- NOTE | ~2025-01-20 | CT_ITS ---
CLINICAL HISTORY: Fall CT HEAD WITHOUT CONTRAST Comparison: None Findings: No acute intracranial hemorrhage, extra-axial fluid collection, hydrocephalus or midline shift. Age appropriate generalized parenchymal atrophy. There are periventricular and subcortical white matter hypodensities which are nonspecific but most likely related to microangiopathic gliosis. There is no sinus or mastoid fluid. Visualized orbits: No acute abnormalities. There is no acute fracture. IMPRESSION: 1. No acute intracranial hemorrhage. This document has been electronically signed by: Candie Mayer DO on 01/20/2025 18:08:18
--- NOTE | ~2025-01-20 | XR_ITS ---
CLINICAL HISTORY: fall 3 view left shoulder Comparison: None provided Findings: There is cervical fusion hardware. Mild arthritic changes. No erosions. No radiopaque foreign body. IMPRESSION: No acute fracture or dislocation. This document has been electronically signed by: Candie Mayer DO on 01/20/2025 17:21:26
--- NOTE | ~2025-01-20 | CT_ITS ---
CLINICAL HISTORY: Fall CT CHEST WITHOUT CONTRAST Comparison: None provided Findings: No significant pericardial effusion. Normal caliber thoracic aorta. The visualized thyroid and mediastinum are unremarkable. No consolidation or contusion. No pleural effusion or pneumothorax. Tiny calcified granuloma in the right lower lobe. Please see the separate report for the CT abdomen and pelvis. The bones are intact. Anterior cervical fusion hardware. IMPRESSION: No acute posttraumatic changes. This document has been electronically signed by: Candie Mayer DO on 01/20/2025 17:54:10
--- NOTE | ~2025-01-20 | XR_ITS ---
CLINICAL HISTORY: Fall 4 view left knee Comparison: None provided Findings: Bones intact. No dislocations. Moderate tricompartmental joint space narrowing especially in the patellofemoral joint where there is prominent degenerative spurring. No joint effusion. No radiopaque foreign body. Prominent arterial calcifications. IMPRESSION: No acute fracture, dislocation or significant joint effusion. This document has been electronically signed by: Candie Mayer DO on 01/20/2025 17:19:14
[2025-01-20 16:26] VITALS: BP 151/85; PULSE 95; RESP 18; TEMP 36.3; O2SAT 98; BMI 33.3
--- NOTE | 2025-01-20 16:33 | ED_ITS ---
HPI - General Adult General Chief complaint: Fall Stated complaint: Fall at work Time Seen by Provider: 01/20/25 20:42 Source: patient Limitations: no limitations History of Present Illness ED Provider: Susannah Appiah PA-C HPI narrative: 64-year-old female presents after fall. Patient states she was walking down stairs, she was carrying a bucket and a mom, she subsequently missed the last step, her feet went out from under her, she fell with all of her body weight onto her left side. She did strike her head. She does not use blood thinners, there was no loss of consciousness. Patient primarily complains of left shoulder left knee pain and left-sided head pain. Denies dizziness, nausea, vomiting. Related Data Home Medications ?Medication ?Instructions ?Recorded ?Confirmed cholecalciferol (vitamin D3) 25 25 mcg PO DAILY 10/21/21 mcg (1,000 unit) tablet ferrous sulfate 325 mg (65 mg 325 mg PO DAILY 10/21/21 10/21/21 iron) tablet fluticasone propionate 50 2 spray intranasal DAILY 03/0610/21/21 mcg/actuation nasal spray,suspension hydrochlorothiazide 25 mg tablet 25 mg PO DAILY 10/21/21 multivitamin (One Daily 1 tab PO DAILY 10/21/2103/06 Multivitamin tablet) omeprazole 20 mg capsule,delayed 20 mg PO DAILY 10/21/21 release vitamin [id number] B1 1,000 1 ml IM . monthly 2 10/21/21 mcg-100 mg/mL injection solution Previous Rx's ?Medication ?Instructions ?Recorded naproxen 500 mg tablet 500 mg PO BID PRN pain #14 t abs 08/01/22 ondansetron 4 mg disintegrating 4 mg PO Q8H PRN nausea and 08/01/22 tablet vomiting #10 tabs tamsulosin 0.4 mg capsule 0.4 mg PO BEDTIME #10 caps 0 08/01/22 loperamide 2 mg capsule 2 mg PO Q4H PRN loose stool #14 12/18/23 caps ondansetron HCl 4 mg tablet 4 mg PO Q6H PRN nausea and 12/18/23 vomiting #10 tabs benzonatate 200 mg capsule 200 mg PO TID PRN cough 5 d ays #15 04/16/24 caps ketorolac 10 mg tablet 10 mg PO Q6H PRN pain #20 ta bs 01/20/25 methocarbamol 750 mg tablet 1,500 mg (2 x 750 mg) PO Q 8H PRN 01/20/25 pain, moderate #20 tabs Allergies Allergy/AdvReac Type Severity Reaction Status Date / Time No Known Allergies (No Known Allergy Verified 01/20/25 16:29 Allergies*) Review of Systems Review of Systems: Yes all other systems are reviewed and are negative Constitutional: Constitutional: Denies fatigue, Denies fever(s) and Reports headache(s) ENT: Denies dizziness, Reports headache(s) and Denies neck pain Cardiovascular: Cardiovascular: Denies chest pain and Denies dyspnea Respiratory: Respiratory: Denies dyspnea Gastrointestinal: Gastrointestinal: Denies abdominal pain, Denies nausea and Denies vomiting Musculoskeletal: Musculoskeletal: Reports back pain, Reports myalgias, Reports arthralgias, Reports joint swelling and Denies neck pain Neurologic: Denies dizziness and Reports headache(s) Endocrine: Endocrine: Denies fatigue [facility] Past Medical History Attestation statement: The following information was validated with the patient. 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 Physical Exam ED Vital Signs: Vital Signs - 24 hr 01/20/25 16:26 01/20/25 20:11 01/20/25 22:37 Temperature 97.3 F 98.2 F 98.0 F Pulse Rate 95 66 68 Respiratory Rate 18 Blood Pressure 151/85 H 146/76 H 133/82 Pulse Oximetry 98 99 98 Oxygen Delivery Method Room Air Room Air Room Air BMI result Body Mass Index 33.3 Const Other: Alert well-appearing no evidence of head trauma on exam Orientation/consciousness: patient oriented x3 Resp Effort & Inspection: normal respiratory effort Cardio Other: Normal peripheral perfusion Skin Other: Warm dry no rash Neuro General: patient oriented x3, gait normal, no focal motor deficits and CN's II- XI intact bilaterally Extrem Other: Bruising no vague over lateral left knee mild swelling can flex and extend, full range of motion of left shoulder Psych Other: Cooperative Course Course Course Narrative: RME: 64-year-old female presents to the ED for falling onto left side at work down the stairs patient states he slipped. Patient has hit her head, shoulder, chest and left hip. Patient complaining of left knee left headache left chest left shoulder pain. Positive for rib tenderness on palpation and shoulder tenderness. Patient is sent for CAT scan and x-rays Medications Administered Discontinued Medications Generic Name Dose Route Start Last Admin Trade Name Freq PRN Reason Stop Dose Admin Ketorolac Tromethamine 15 mg 01/20/25 22:29 01/20/25 22:38 Ketorolac Tromethamine 15 Mg/Ml Vial IM 01/20/25 22:30 15 mg ONCE ONE Administration Methocarbamol 1,500 mg 01/20/25 22:29 01/20/25 23:10 Methocarbamol 750 Mg Tablet PO 01/20/25 22:30 1,500 mg ONCE ONE Administration Medical Decision Making Medical Decision Making [facility] Narrative: 64-year-old female presents after fall. Patient states she was walking down stairs, she was carrying a bucket and a mom, she subsequently missed the last step, her feet went out from under her, she fell with all of her body weight onto her left side. She did strike her head. She does not use blood thinners, there was no loss of consciousness. Patient primarily complains of left shoulder left knee pain and left-sided head pain. Denies dizziness, nausea, vomiting. No relevant chronic issues History: Per patient I have considered the following differential diagnoses: Intracranial hemorrhage, cervical spine injury, fracture, dislocation, contusion Plan: Extensive imaging ordered from triage everything is negative. The patient has sustained musculoskeletal strain with a contusion. I have independently reviewed the following tests: CT cervical: MPRESSION: No acute fracture in the cervical spine. CT brain: MPRESSION: 1. No acute intracranial hemorrhage. CT abd: IMPRESSION: 1. No acute posttraumatic changes. 2. Mild small bowel ileus pattern. 3. No obstructive or acute inflammatory changes in the gastrointestinal and genitourinary tracts. CT chest: IMPRESSION: No acute posttraumatic changes. X-ray left knee:IMPRESSION: No acute fracture, dislocation or significant joint effusion. X-ray left shoulder:MPRESSION: No acute fracture or dislocation. Discharge Plan Discharge Clinical Impression: Musculoskeletal strain, Contusion Patient Disposition: Home, Self-Care Instructions: Bone Bruise (ED) Additional Instructions: The imaging that was obtained today was negative for acute injury. You have contusions and musculoskeletal strain. See home care instructions. Use the ketorolac as directed, this is an anti-inflammatory, take it with food. Use the methocarbamol as needed for further pain, this is a muscle relaxant. This medication will cause drowsiness, do not drive or operate machinery while taking the medication. Follow up with your primary care provider as needed. Prescriptions: New ketorolac 10 mg tablet 10 mg PO Q6H PRN (Reason: pain) Qty: 20 0RF Rx Instructions: maximum total duration of 5 days from all oral, intranasal, or parenteral formulations. The patient received an intramuscular dose of Toradol here in the emergency room. methocarbamol 750 mg tablet 1,500 mg PO Q8H PRN (Reason: pain, moderate) Qty: 20 0RF No Action tamsulosin 0.4 mg capsule 0.4 mg PO BEDTIME Qty: 10 0RF naproxen 500 mg tablet 500 mg PO BID PRN (Reason: pain) Qty: 14 0RF ondansetron 4 mg tablet,disintegrating 4 mg PO Q8H PRN (Reason: nausea and vomiting) Qty: 10 0RF ondansetron HCl 4 mg tablet 4 mg PO Q6H PRN (Reason: nausea and vomiting) Qty: 10 0RF loperamide 2 mg capsule 2 mg PO Q4H PRN (Reason: loose stool) Qty: 14 0RF Rx Instructions: administer after each loose stool until symptoms controlled; do not exceed 8 mg per 24 hrs benzonatate 200 mg capsule 200 mg PO TID PRN (Reason: cough) 5 Days Qty: 15 0RF cholecalciferol (vitamin D3) 25 mcg (1,000 unit) tablet 25 mcg PO DAILY omeprazole 20 mg capsule,delayed release(/EC) 20 mg PO DAILY hydrochlorothiazide 25 mg tablet 25 mg PO DAILY multivitamin [One Daily Multivitamin] Tablet 1 tab PO DAILY ferrous sulfate 325 mg (65 mg iron) tablet 325 mg PO DAILY vitamin [id number] B1 1,000-100 mg/mL solution 1 ml IM . monthly fluticasone propionate 50 mcg/actuation spray,suspension 2 spray intranasal DAILY Stand Alone Forms: Work/School Release Interventions: ED Discharge Assessment Last Done: 01/20/25 23:19 Discharge Date/Time: 01/20/25 23:21 Print Language: Australian
[2025-01-20 20:11] VITALS: BP 146/76; PULSE 66; TEMP 36.8; O2SAT 99
--- OUTSIDE RECORDS SUMMARY | 2025-01-20 20:36 | XMS_ITS ---
Author Name [facility] Organization Unknown History of Medication Use Medication Directions Dispensed Refills Start Date End Date Stat us SUMAtriptan (IMITREX) 50 MG tablet Take 1 tablet (50 mg total) by mouth every 2 (two) hours as needed. 01/28/2024 active betamethasone dipropionate (DIPROSONE) 0.05 % cream APPLY TO THE AFFECTED AREA(S) THREE TIMES DAILY NEEDED 01/21/2024 active triamcinolone (KENALOG) 0.025 % cream APPLY TO THE AFFECTED AREA(S) EVERY DAY FOR 1 WEEK NEEDED 01/21/2024 active ondansetron (ZOFRAN) 4 MG tablet TAKE 1 TABLET BY MOUTH EVERY 6 HOURS NEEDED FOR NAUSEA AND VOMITING 12/19/2023 active Problems Problem Status Onset Date Problem Type Date of Resolution Source Migraine without aura and without status migrainosus, not intractable active EncounterDiagnosisAct CTT HNEMG
--- OUTSIDE RECORDS SUMMARY | 2025-01-20 20:36 | XMS_ITS | Clinical Summary ---
Author Organization [facility] Address [address] [place] [address] Care Team Providers Care Glass Cleaner Name Role Phone Juancarlos Means MD Primary Care Provider [phone] Medications Medication Sig Dispensed Refills Start Date End Date Status betamethasone dipropionate (DIPROSONE) 0.05 % cream APPLY TO THE AFFECTED AREA(S) THREE TIMES DAILY NEEDED 0 01/21/2024 Active Cholecalciferol (Vitamin D3) 25 MCG TABS Take 1 tablet (25 mcg total) by mouth daily. 0 03/21/2023 Active hydroCHLOROthiazide (HYDRODIURIL) tablet 25 mg Take 1 tablet (25 mg total) by mouth daily. 0 01/21/2024 Active loperamide (IMODIUM) 2 MG capsule TAKE 1 CAPSULE BY MOUTH EVERY 4 HOURS NEEDED FOR LOOSE STOOL UNTIL SYMPTOMS CONTROLLED. DO NOT EXCEED 8 MG IN 24 HOURS 0 12/19/2023 Active ondansetron (ZOFRAN) 4 MG tablet TAKE 1 TABLET BY MOUTH EVERY 6 HOURS NEEDED FOR NAUSEA AND VOMITING 0 12/19/2023 Active meloxicam (MOBIC) 15 MG tablet Take 1 tablet (15 mg total) by mouth daily. 0 10/12/2023 Active triamcinolone (KENALOG) 0.025 % cream APPLY TO THE AFFECTED AREA(S) EVERY DAY FOR 1 WEEK NEEDED 0 01/21/2024 Active omeprazole (PriLOSEC) 20 MG capsule Take 1 capsule (20 mg total) by mouth daily. 0 11/15/2023 Active Magnesium 400 MG CAPS Take 400 mg by mouth daily. 30 capsule 3 04/01/2024 Active Riboflavin 400 MG CAPS Take 400 mg by mouth daily. 30 capsule 3 04/01/2024 Active SUMAtriptan (IMITREX) 50 MG tablet Take 1 tablet (50 mg total) by mouth every 2 (two) hours as needed. 10 tablet 3 04/01/2024 Active ergocalciferol (VITAMIN D2) capsule 83132 units Take 1 capsule (50,000 Units total) by mouth once a week. 4 capsule 12 04/01/2024 Active Cyanocobalamin (B-12) 1000 MCG TABS Take 1 tablet by mouth daily. 30 tablet 3 04/01/2024 Active Social History Tobacco Use Types Packs/Day Years Used Date Smoking Tobacco: Never Assessed Sex and Gender Information Value Date Recorded Sex Assigned at Female 10/22/2023 3:49 PM EDT Gender Identity Not on file Sexual Orientation Not on file Job Start Date Occupation Industry Not on file Not on file Not on file Last Filed Vital Signs Vital Sign Reading Time Taken Comments Blood Pressure 144/90 04/01/2024 3:58 PM EDT Pulse 63 04/01/2024 3:58 PM EDT Temperature 36.1 C (97 F) 04/01/2024 3:58 PM EDT Respiratory Rate - - Oxygen Saturation 97% 04/01/2024 3:58 PM EDT Inhaled Oxygen Concentration - - Weight - - Height - - Body Mass Index - - Plan of Treatment Health Maintenance Due Date Last Done Comments Hepatitis C Screening 1960 Depression Screening 1972 Preventative Health Evaluation 1978 Cervical Cancer Screening (Pap Smear) 1981 Colon Cancer Screening (Colonoscopy) 2005 Breast Cancer Screening (Mammogram) 2010 Shingrix-Zoster Vaccine (1 of 2) 2010 COVID-19 Vaccine (3 - season) 2024 08/29/2021, 10/22/2020 Influenza Vaccine (#1) 2025 , 04/11/2021, 05/27/2020, Additional history exists Pneumococcal Vaccine (1 of 1 - PCV) 2025 DTap / Tdap / Td (2 - Td or Tdap) 12/07/2025 12/08/2015 RSV Adult > 60+ Yrs or (1 - 1-dose 75+ series) 2035 Hepatitis B Vaccines Aged Out No long er eligible based on patient's age to complete this topic Pneumococcal Vaccine Aged Out No long er eligible based on patient's age to complete this topic RSV Ped < 20 months Aged Out No longe r eligible based on patient's age to complete this topic Care Teams Glass Cleaner Relationship Specialty Start Date End Date Juancarlos Means MD PCP - General Internal Medicine 10/22/23
[2025-01-20 22:37] VITALS: BP 133/82; PULSE 68; TEMP 36.7; O2SAT 98
[2025-01-20 23:19] VITALS: BP 132/78; PULSE 72; RESP 16; TEMP 36.7; O2SAT 96
== END 2025-01-20 23:21 | disposition home or self-care (01) ==
PROVIDERS: Emergency Provider Emergency Medicine; PCP Internal Medicine
DX: S80.02XA Contusion of left knee, initial encounter (principal); W10.8XXA Fall (on) (from) other stairs and steps, initial encounter; R51.9 Headache, unspecified; M54.2 Cervicalgia; M25.512 Pain in left shoulder; M25.562 Pain in left knee; I10 Essential (primary) hypertension; M25.552 Pain in left hip; Y93.E5 Activity, floor mopping and cleaning; Y92.9 Unspecified place or not applicable; Y99.0 Civilian activity done for income or pay
CPT/HCPCS: 70450; 71250; 72125; 73030; 73564; 74176; 96372; 99284; J1885

== ENCOUNTER → 2025-01-20 16:30 | Outpatient (BNV) | payer MEDICAID, SELFPAY | PROVIDERS: PCP Internal Medicine; Visit Provider Radiology Diagnostic Radiology | DX: M25.512 Pain in left shoulder (principal); M25.562 Pain in left knee; R10.12 Left upper quadrant pain; S09.90XA Unspecified injury of head, initial encounter; W19.XXXA Unspecified fall, initial encounter | CPT/HCPCS: 70450; 71250; 72125; 73030; 73564; 74176 ==

== ENCOUNTER 2025-07-06 12:51 | Emergency (ER) | payer OTHER, SELFPAY ==
--- NOTE | ~2025-07-06 | XR_ITS ---
EXAMINATION: XR CHEST 2 VIEWS HISTORY: sob cough COMPARISON: Comparison is made with the prior examination dated 04/16/2024. FINDINGS: PA and lateral views of the chest are submitted. The lungs are expanded and clear. There is no pleural effusion, pneumothorax, or pulmonary vascular congestion. The heart is normal in size. The bones are intact. A fusion plate is noted in the lower cervical spine. XR/XR chest 2V IMPRESSION: No acute cardiopulmonary abnormality. Electronically signed by: Víctor Stewart MD 07/06/2025 01:28 PM DINA
[2025-07-06 13:03] VITALS: BP 182/87; PULSE 82; RESP 18; TEMP 36.8; O2SAT 98; BMI 33.1
--- NOTE | 2025-07-06 13:14 | ED.GENADULT ---
HPI - General Adult General Chief complaint: Upper Respiratory Symptoms Stated complaint: Headaches, Coughing, Soar Throat Time Seen by Provider: 07/06/25 13:38 Source: patient Mode of arrival: ambulatory Limitations: no limitations History of Present Illness ED Provider: BETZY CELAYA PA-C HPI narrative: 64-year-old female presents to the emergency department for evaluation of headache, subjective fever, myalgias, sore throat, and cough x4 days. No documented temperature. Taking tylenol/motrin at home. Last took Tylenol this morning. 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 Admits to history of recurrent bronchitis - last treated for this approximately 2 years ago. Denies tobacco use/vaping. Denies hx asthma. Denies dizziness, chest pain, sob/wheezing, LE pain/swelling, abd pain, N/V/D. Related Data Home Medications ?Medication ?Instructions ?Recorded ?Confirmed cholecalciferol (vitamin D3) 25 25 mcg PO DAILY 10/21/21 10/21/21 mcg (1,000 unit) tablet ferrous sulfate 325 mg (65 mg 325 mg PO DAILY 10/21/21 10/21/21 iron) tablet fluticasone propionate 50 2 spray intranasal DAILY 10/21/21 10/21/21 mcg/actuation nasal spray,suspension hydrochlorothiazide 25 mg tablet 25 mg PO DAILY 10/21/21 10/21/21 multivitamin (One Daily 1 tab PO DAILY 10/21/21 10/21/21 Multivitamin tablet) omeprazole 20 mg capsule,delayed 20 mg PO DAILY 10/21/21 10/21/21 release vitamin [id number] B1 1,000 1 ml IM . monthly 10/21/21 10/21/21 mcg-100 mg/mL injection solution Previous Rx's ?Medication ?Instructions ?Recorded naproxen 500 mg tablet 500 mg PO BID PRN pain #14 tabs 08/01/22 ondansetron 4 mg disintegrating 4 mg PO Q8H PRN nausea and 08/01/22 tablet vomiting #10 tabs tamsulosin 0.4 mg capsule 0.4 mg PO BEDTIME #10 caps 08/01/22 loperamide 2 mg capsule 2 mg PO Q4H PRN loose stool #14 12/18/23 caps ondansetron HCl 4 mg tablet 4 mg PO Q6H PRN nausea and 12/18/23 vomiting #10 tabs benzonatate 200 mg capsule 200 mg PO TID PRN cough 5 days #15 04/16/24 caps ketorolac 10 mg tablet 10 mg PO Q6H PRN pain #20 tabs 01/20/25 methocarbamol 750 mg tablet 1,500 mg (2 x 750 mg) PO Q8H PRN 01/20/25 pain, moderate #20 tabs azithromycin 250 mg tablet See Rx Instructions PO .COMPLEX #6 07/06/25 tabs prednisone 20 mg tablet 40 mg (2 x 20 mg) PO DAILY 5 days 07/06/25 #10 tabs Allergies Allergy/AdvReac Type Severity Reaction Status Date / Time No Known Allergies (No Known Allergy Verified 07/06/25 13:05 Allergies*) Review of Systems Review of Systems: Yes all other systems are reviewed and are negative [facility] Past Medical History Attestation statement: The following information was validated with the patient. 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 Skin: Warm, dry, intact. No rashes or lesions. Head: Normocephalic, atraumatic. EENT: Hearing is intact b/l. Conjunctiva clear. PERRLA. EOM intact. Moist mucous membranes.? Neck: Supple without LAD Cardiac: Chest wall symmetric. RRR Lungs: hoarse voice, bronchospastic cough, Normal respiratory effort without accessory muscle use. CTA bilaterally. No rales, rhonchi, or wheezes.? Ext: Upper and lower extremities atraumatic, without tenderness, deformity, swelling or erythema. Full ROM throughout Neuro: AOx3. Normal speech. Ambulating with steady gait. Psych: Appropriate mood and affect. Responds appropriately to questions. Course Course Course Narrative: RME; 64 yold female presents to the ED URI Symptoms such as coughing, hedachache, and soar throat. xray and strep swabs ordred Reevaluation(s) Reevaluation #1: Negative COVID, flu, RSV, strep. Chest x-ray does not demonstrate pneumonia. Exam reassuring. Will treat for bronchitis. Azithromycin and prednisone sent to pharmacy. Advised to continue Robitussin at home with PCP follow up. Patient has remained stable throughout ED visit today. Discussed worrisome signs and symptoms and when to return to the ED. All questions answered at this time. Patient is agreeable with disposition and stable for discharge. Medical Decision Making Medical Decision Making [facility] Narrative: 64-year-old female presents to the emergency department for evaluation of headache, subjective fever, myalgias, sore throat, and cough x4 days. hypertensive, vitals are otherwise wnl. on exam, patient has a hoarse voice and bronchospastic cough. Lungs are clear to auscultation. Throat is mildly erythematous, no tonsillar exudates or masses, uvula midline, controlling secretions and speaking complete sentences. No muffled voice. Differential diagnosis includes viral syndrome, bronchitis, pneumonia, strep throat, pharyngitis. Unlikely HEART COORDINATOR, retropharyngeal abscess, epiglottitis. Plan for viral/strep swabs, cxr, re-evaluation. Differential Diagnosis Differential Diagnoses: The differential diagnosis associated with the presentation includes as above. Admission/Observation not indicated. Lab Data [facility] Lab Attestation statement: I reviewed the patient's lab results. as above. Labs: Lab Results 07/06/25 Range/Units 13:46 Influenza Type A (PCR) NEGATIVE (Negative) Influenza Type B (PCR) NEGATIVE (Negative) RSV RNA Qual (PCR) NEGATIVE (Negative) SARS-CoV-2 RNA (RT-PCR) NEGATIVE (Negative) S. pyogenes GrpA PIPER Negative (Negative) Independent Interpretation I performed an independent interpretation of an: Plain X-Ray Interpretation: chest xr without infiltrate or consolidation Radiology Impression Discussion of test interpretation with radiology: I have reviewed the radiologist's reading. Radiologist Impression: Procedure(s): XR chest 2V Accession Number(s): [id number] cc: Juancarlos Means III, MD; Generic ED Physician~ Reason for Exam: sob cough EXAMINATION: XR CHEST 2 VIEWS HISTORY: sob cough COMPARISON: Comparison is made with the prior examination dated 04/16/2024. FINDINGS: PA and lateral views of the chest are submitted. The lungs are expanded and clear. There is no pleural effusion, pneumothorax, or pulmonary vascular congestion. The heart is normal in size. The bones are intact. A fusion plate is noted in the lower cervical spine. XR/XR chest 2V IMPRESSION: No acute cardiopulmonary abnormality. Electronically signed by: Víctor Stewart MD 07/06/2025 01:28 PM EST External Record Review External record reviewed: Inpatient record Prescription Management I considered prescription management with: Antibiotic (azithromycin) Social Determinants Patient?s care significantly limited by Social Determinants of Health including: Other Social Determinant of Health Critical Care Time Critical Care Time Critical Care Time: No Discharge Plan Discharge Clinical Impression: Bronchitis Patient Disposition: Home, Self-Care Instructions: Acute Bronchitis (ED) Additional Instructions: You tested negative for COVID, flu, RSV, strep throat. Your chest x-ray does not demonstrate pneumonia. I am treating you for bronchitis. Azithromycin as an antibiotic that has been sent to your pharmacy. Please take this as prescribed to completion. Prednisone as a steroid that has been sent to your pharmacy. Take this as prescribed over the next 5 days. Continue Robitussin at home for cough. Take Tylenol/Motrin at home as needed for fevers/body aches. Follow up with your primary care provider. Return with any new or worsening symptoms. In the case of an emergency call 911. Prescriptions: New azithromycin 250 mg tablet See Rx Instructions PO .COMPLEX Qty: 6 0RF Rx Instructions: For 250 mg dose pack: take 500 mg today (day 1), then 250 mg for 4 days (days 2-5) prednisone 20 mg tablet 40 mg PO DAILY 5 Days Qty: 10 0RF No Action tamsulosin 0.4 mg capsule 0.4 mg PO BEDTIME Qty: 10 0RF naproxen 500 mg tablet 500 mg PO BID PRN (Reason: pain) Qty: 14 0RF ondansetron 4 mg tablet,disintegrating 4 mg PO Q8H PRN (Reason: nausea and vomiting) Qty: 10 0RF ondansetron HCl 4 mg tablet 4 mg PO Q6H PRN (Reason: nausea and vomiting) Qty: 10 0RF loperamide 2 mg capsule 2 mg PO Q4H PRN (Reason: loose stool) Qty: 14 0RF Rx Instructions: administer after each loose stool until symptoms controlled; do not exceed 8 mg per 24 hrs ketorolac 10 mg tablet 10 mg PO Q6H PRN (Reason: pain) Qty: 20 0RF Rx Instructions: maximum total duration of 5 days from all oral, intranasal, or parenteral formulations. The patient received an intramuscular dose of Toradol here in the emergency room. methocarbamol 750 mg tablet 1,500 mg PO Q8H PRN (Reason: pain, moderate) Qty: 20 0RF benzonatate 200 mg capsule 200 mg PO TID PRN (Reason: cough) 5 Days Qty: 15 0RF cholecalciferol (vitamin D3) 25 mcg (1,000 unit) tablet 25 mcg PO DAILY omeprazole 20 mg capsule,delayed release(DR/EC) 20 mg PO DAILY hydrochlorothiazide 25 mg tablet 25 mg PO DAILY multivitamin [One Daily Multivitamin] Tablet 1 tab PO DAILY ferrous sulfate 325 mg (65 mg iron) tablet 325 mg PO DAILY vitamin [id number] B1 1,000-100 mg/mL solution 1 ml IM . monthly fluticasone propionate 50 mcg/actuation spray,suspension 2 spray intranasal DAILY Referrals: Juancarlos Means III, MD [Primary Care Provider, Medical] Stand Alone Forms: Work/School Release Interventions: ED Discharge Assessment Last Done: 07/06/25 15:20 Discharge Date/Time: 07/06/25 15:20 Print Language: Belarusian
[2025-07-06 14:00] VITALS: BP 178/88
[2025-07-06 14:00] LABS: Strep A Nucleic Acid Negative (Negative)
[2025-07-06 14:31] LABS: Resp Syncy Virus RNA Qual PCR NEGATIVE (Negative); SARS COV2 PCR INHOUSE NEGATIVE (Negative)
[2025-07-06 15:20] VITALS: BP 178/88; PULSE 82; RESP 18; TEMP 37.1; O2SAT 95
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
--- OUTSIDE RECORDS SUMMARY | 2025-07-06 17:24 | XMS_ITS | Clinical Summary ---
Author Organization [facility] Prior to 12/13/24 Address [address] [place] [address] Care Team Providers Care Wood Finisher Name Role Phone Juancarlos Means MD Primary Care Provider Medications Medication Sig Dispensed Refills Start Date [...] 3 04/01/2024 Active ergocalciferol (VITAMIN D2) capsule 60459 units Take 1 capsule (50,000 Units total) [...] 2) 2010 COVID-19 Vaccine (3 - season) 2025 08/29/2021, 10/22/2020 Influenza Vaccine (#1) [...] age to complete this topic Care Teams Wood Finisher Relationship Specialty Start Date End Date Juancarlos Means MD PCP - General Internal Medicine 10/22/23
== END 2025-07-06 15:20 | disposition home or self-care (01) ==
PROVIDERS: Physician Assistant; Emergency Provider Emergency Medicine; PCP Internal Medicine
DX: J40 Bronchitis, not specified as acute or chronic (principal); R51.9 Headache, unspecified; R05.9 Cough, unspecified; J02.9 Acute pharyngitis, unspecified; R50.9 Fever, unspecified; Z79.899 Other long term (current) drug therapy; Z03.818 Encounter for observation for suspected exposure to other biological agents ruled out
CPT/HCPCS: 71046; 87637; 87651; 99283

== ENCOUNTER → 2025-07-06 13:06 | Outpatient (BNV) | payer OTHER, SELFPAY | PROVIDERS: Emergency Provider Emergency Medicine; PCP Internal Medicine; Visit Provider Radiology Diagnostic Radiology | DX: R05.9 Cough, unspecified (principal); R06.02 Shortness of breath | CPT/HCPCS: 71046 ==